=== PATIENT | female | born 1955 | race Caucasian/White ===

== ENCOUNTER 2022-07-28 17:35 | Inpatient (IN) | payer MEDICARE, SELFPAY ==
--- NOTE | ~2022-07-28 | CT_ITS ---
EXAMINATION: CT ABDOMEN AND PELVIS WITHOUT CONTRAST CLINICAL INFORMATION: Bile in stomach and small bowel COMPARISON: None. TECHNIQUE: Oral contrast was administered. No IV contrast. Multidetector volumetric imaging was performed from the lung bases through the pubic symphysis. Sagittal and coronal reformatted images were obtained on the technologist workstation. This CT examination was performed using dose optimization techniques as appropriate, variously including the following: *Automated exposure control *Adjustment of mA and/or kV according to patient size (this includes techniques or standardized protocols for targeted exams where dose is matched to indication/reason for exam; i.e. extremities or head) *Use of iterative reconstruction technique FINDINGS: The lack of intravenous contrast limits evaluation of the solid visceral organs including the liver, spleen, pancreas, and kidneys. LUNG BASES: 5 mm pleural pleural nodule along the right hemidiaphragm, axial image 6/95, coronal image 46/88, likely pleural lymph nodes for which no imaging follow-up is recommended per Fleischner criteria. Bibasilar atelectasis. Mild cardiomegaly. Trace pericardial effusion. LIVER, GALLBLADDER, AND BILIARY TREE: Limited non-contrast evaluation is normal. No gross focal hepatic lesion. Normal liver size and contour. No gross biliary ductal dilation. Gallbladder is distended. There is subtle dependent density consistent with tiny gallstones. No gallbladder wall thickening or pericholecystic fluid. PANCREAS: Limited non-contrast evaluation is normal. No jose-pancreatic fluid. SPLEEN: Limited non-contrast evaluation is normal. ADRENAL GLANDS: Normal; no adrenal mass. KIDNEYS AND URETERS: Atrophic left kidney. No hydronephrosis or calculi. There is volume loss of the anterior cortex of lower pole the right kidney presumably an area of scarring. GASTROINTESTINAL TRACT: Stomach is distended with oral contrast. The proximal to mid small bowel is mildly dilated up to 3.5 cm. The dilated small bowel is followed to the right lower quadrant, with there are fecalized small bowel contents, image 53/95, and a transition to normal caliber. The distal small bowel is collapsed. Oral contrast is seen in the right colon and transverse colon. There is scattered colonic diverticulosis but no evidence of colitis or diverticulitis. The left colon and rectosigmoid colon are collapsed. ABDOMINAL WALL: No hernia seen. LYMPH NODES: No pathologically enlarged lymph nodes in the abdomen or pelvis. VASCULAR: Normal caliber abdominal aorta. BLADDER: Unremarkable. PELVIC VISCERA: Retroverted uterus. No adnexal mass. OSSEOUS STRUCTURES: Age-indeterminate superior endplate compression deformity of T12. CT/CT abdomen pelvis wo IV con IMPRESSION: Small bowel obstruction with transition in the right lower quadrant. There are fecalized small bowel contents immediately proximal to the transition. This could represent a bezoar or be secondary to prolonged small bowel transit time/stasis. Recommend surgery consultation. The findings and recommendations were discussed with Steve Sharma MD by telephone at 07/29/2022 6:07 PM and it was ascertained that the content and urgency of the report was understood at the time of direct communication.
--- NOTE | ~2022-07-28 | XR_ITS ---
EXAMINATION: XR ABDOMEN KUB CLINICAL INDICATION: Small bowel obstruction COMPARISON: Previous CT of the abdomen and pelvis from yesterday TECHNIQUE: AP view of the abdomen. FINDINGS: There is interval decrease in small bowel dilatation from yesterday's CT scan. There is oral contrast in a normal caliber colon. There is diverticulosis of the colon. There is no evidence of free air. No calcifications. There are degenerative changes of the spine. XR/XR KUB IMPRESSION: Interval decrease in small bowel dilatation compared to yesterday's exam.
--- NOTE | ~2022-07-28 | XR_ITS ---
EXAMINATION: XR chest 1V CLINICAL INFORMATION: Reason for Exam gi bleed, vomiting COMPARISON: None TECHNIQUE: One view of the chest FINDINGS: Clear lungs. No pneumothorax or pleural effusion. Borderline enlarged cardiac silhouette. Ectatic thoracic aorta. Prominent pulmonary arteries which can be seen in the setting of pulmonary hypertension. XR/XR chest 1V Impression: 1. Borderline enlarged cardiac silhouette. Ectatic thoracic aorta. 2. Prominent pulmonary arteries which can be seen in the setting of pulmonary hypertension.
--- NOTE | ~2022-07-28 | XR_ITS ---
EXAMINATION: XR foot LT min 3V CLINICAL INFORMATION: Reason for Exam trauma COMPARISON: None. TECHNIQUE: AP, lateral, and oblique views of the foot FINDINGS: No acute fracture or dislocation appreciated however flexion of digits on all views and overlying bandaging material limits evaluation. Joint spaces are maintained without significant degenerative change. Significant soft tissue swelling along the dorsum of the foot. No definite tibiotalar effusion appreciated. Osteopenia. XR/XR foot LT min 3V IMPRESSION: 1. No acute fracture or dislocation appreciated however flexion of digits on all views and overlying bandaging material limits evaluation. 2. Significant soft tissue swelling along the dorsum of the foot. 3. Osteopenia.
--- NOTE | 2022-07-28 17:37 | ED_ITS ---
HPI - GI Bleed General Chief complaint: General Medical Stated complaint: VOMITING BLOOD Time Seen by Provider: 07/28/22 17:36 Source: patient and EMS Mode of arrival: EMS Limitations: no limitations History of Present Illness HPI Narrative: 66-year-old female presents via EMS for 2 days of nausea and vomiting coffee- ground emesis. Patient is being treated at a wound clinic for left lower extremity pemphigoid. Patient does not taking NSAIDs, does not drink alcohol, does not smoke and has no history of liver disease. Patient feels weak, dizzy, and has abdominal pain. She does not report chest pain or pressure, palpitations, changes in vision, abdominal distention, melena, hematochezia, fevers or chills. MD complaint: coffee ground emesis Onset (ago): day(s) (1) Pain Consistency: intermittent Severity: moderate Relieving factors: none Associated symptoms: abdominal pain, nausea, vomiting, malaise and weakness Treatments Prior to Arrival: none Related Data Home Medications Medication Instructions Recorded Confirmed amiodarone 200 mg tablet 0.5 tab PO DAILY 07/28/22 carvedilol 12.5 mg tablet 1 tab PO DAILY 07/28/22 carvedilol 12.5 mg tablet 2 tab PO BEDTIME 07/28/22 doxycycline monohydrate 100 mg 1 cap PO BID 07/28/22 capsule levothyroxine 75 mcg tablet 1 tab PO DAILY 07/28/22 simvastatin 20 mg tablet 1 tab PO BEDTIME 07/28/22 valsartan 40 mg tablet 1 tab PO DAILY 07/28/22 Allergies Allergy/AdvReac Type Severity Reaction Status Date / Time No Known Allergies Allergy Verified 07/28/22 17:39 Review of Systems Review of Systems: Constitutional: No Weight loss, No Fever, No Chills, No Night Sweats, No Fatigue, No Malaise ENT/Mouth: No Hearing loss, No Ear Pain, No Nasal Congestion, No Sinus Pain, No Hoarseness, No sore throat, No Rhinorrhea, No Swallowing Difficulty Eyes: No Eye Pain, No Swelling, No Redness, No Foreign Body, No Discharge, No Vision Changes Cardiovascular: No Chest Pain, No SOB, No Dyspnea on Exertion, No Orthopnea, No Edema, No Palpitations Respiratory: No Cough, No Sputum, No Wheezing, No Smoke Exposure, No Dyspnea Gastrointestinal: Positive Nausea, Positive Vomiting, positive Diarrhea, positive abdominal Pain, positive coffee-ground emesis, No Hematochezia, No Melena Genitourinary: no irregular bleeding, No Dysuria, No Urinary Frequency, No Hematuria, No Urinary Incontinence, No Urgency, No Flank Pain, No Urinary Flow Changes, No Hesitancy Musculoskeletal: No joint pain, No Myalgias, No Joint Swelling Skin: No Skin Lesions, No rash Neuro: No Weakness, No Numbness, No Paresthesias, No Loss of Consciousness, No Dizziness, No Headache Psych: No Anxiety/Panic, No Depression, No SI/HI/AH/VH, No Social Issues Heme/Lymph: No Bruising, No Bleeding,No Lymphadenopathy Endocrine: No Polyuria, No Polydipsia, No Temperature Intolerance Yes all other systems are reviewed and are negative [facility] Past Medical History Attestation statement: The following information was validated with the patient. Source: old records reviewed Medical History (Updated 07/28/22 @ 21:28 by Angelina Torres MD) Afib Essential hypertension Hyperlipemia, mixed Hypothyroid Social History Social History Patient Tobacco Use Status: Never used Tobacco Advance Directives: No Physical Exam Vital Signs: Vital Signs: Last Vital Signs Temp 98.0 F 07/28/22 18:02 Pulse 100 07/28/22 18:02 Resp 105 H 07/28/22 18:02 BP 107/60 07/28/22 18:02 Pulse Ox 98 07/28/22 18:02 O2 Del Method 07/28/22 18:02 BMI result Body Mass Index 28.6 Appearance: Alert. Oriented X3. Moderate distress. Eyes: Pupils equal, round and reactive to light. Sclera nonicteric. ENT: Pharynx normal. Moist mucous membranes. Neck: Normal inspection. Neck supple. CVS: Normal heart rate and rhythm. Pulses normal. Respiratory: No respiratory distress. Breath sounds normal. Abdomen: Soft and nontender. No distention or rigidity. Skin: Skin warm and dry. Normal skin color. Normal skin turgor. Extremities: Left lower extremity bandaged. Moves all extremities against resistance. Gait not assessed for safety. Neuro: No motor deficit. No sensory deficit. Cranial nerves 2-12 intact. Course Course Course Narrative: 66-year-old female presents via EMS for evaluation of 2 days of nausea and coffee-ground emesis with abdominal pain. Patient does not have any significant comorbidities, has a history of hypertension, hypothyroidism, AFib, and bullous pemphigoid currently treated in the wound clinic and receives IVIG. Patient does not drink, smoke, or use illicit drugs. Has no known history of liver disease, peptic ulcer disease, and does not take NSAIDs or aspirin. Patient is alert oriented x4, hemodynamically stable vital signs, afebrile, and nontoxic. Will order labs, order Protonix, and IV fluids. Patient's blood pressure was soft prior to transport from EMS, reported to be 80/40. Patient does report a chronically low blood pressure. Lab values indicate SANDEEP, fall GI bleed can elevated BUN, creatinine is 2.15, BUN 35, no prior values for comparison. H&H is stable at 10.0/33.1, troponin 14.2, EKG left bundle branch block no indication ST elevation or depression. COVID influenza negative. Blood type A positive with negative antibody screen. At this time, CT angio for GI bleed cannot be completed. While patient is hemody namically stable, plan is for correction of SANDEEP and then proceeding with GI study tomorrow. I did discuss this with the hospitalist, who agrees with the plan, and this patient will be admitted for SANDEEP and GI bleed. Consultations Consultation #1: Brian Time: 21:00 MDM - GI Bleed Differential Diagnosis Differential diagnosis: Likely gastritis and Upper gastrointestinal hemorrhage Medical Records Attestation: I reviewed the patient's medical records. Lab Data Attestation: I reviewed the patient's lab results. Result diagrams: 07/28/22 18:25 07/28/22 18:25 Labs: Lab Results 07/28/22 07/28/22 07/28/22 Range/Units 18:25 18:25 18:25 WBC 6.9 (4.8-10.8) X10*3/uL RBC 3.86 L (4.20-5.50) X10*6/uL Hgb 10.0 L (12.0-16.0) g/dl Hct 33.1 L (37.0-47.0) % MCV 85.8 (80.0-98.0) fL MCH 25.9 L (27.0-33.0) pg MCHC 30.2 L (31.0-35.0) g/dl RDW 17.0 H (11.0-16.0) % Plt Count 288 (160-400) X10*3/uL MPV 10.4 (9.4-12.3) fL Immature Gran % (Auto) 0.3 (0.0-0.4) % Neut % (Auto) 72.5 (45-73) % Lymph % (Auto) 15.7 L (20-40) % [place] % (Auto) 5.8 (2-11) % Eos % (Auto) 5.1 H (0-4) % Baso % (Auto) 0.6 (0-2) % Lymph # (Auto) 1.1 L (1.2-4.9) X10*3/uL [place] # (Auto) 0.4 (0.1-1.2) X10*3/uL Eos # (Auto) 0.4 (0.0-0.4) X10*3/uL Baso # (Auto) 0.0 (0.0-0.2) X10*3/uL Abs Immat Gran (auto) 0.02 (0.00-0.03) X10*3/uL Absolute Neuts (auto) 5.0 (2.0-8.3) x10*3/uL Absolute Nucleated RBC 0.000 (0.0-0.012) X10*3/uL Nucleated RBC % (auto) 0.0 (0.0-0.2) /100WBC PT (10.0-13.1) SEC INR (0.9-1.1) APTT 32.0 (26.0-36.4) SEC Sodium 143 (135-145) mmol/L Potassium 4.4 (3.3-5.1) mmol/L Chloride 102 (96-108) mmol/L Carbon Dioxide 25 (22-29) mmol/L Anion Gap 20 (12-20) BUN 35 H (9-16) mg/dL Creatinine 2.15 H (0.5-1.4) mg/dL Estim Creat Clear Calc 30.0 Estimated GFR 23 Random Glucose 114 (60-115) mg/dL Calcium 9.7 (8.4-10.2) mg/dL Magnesium 2.0 (1.6-2.6) mg/dL Iron (30-160) mcg/dL TIBC (228-428) mcg/dL % Saturation (15-50) % Unsat Iron Binding ug/dL Total Bilirubin 0.8 (0.0-1.0) mg/dL Direct Bilirubin 0.3 (0.0-0.5) mg/dL AST 16 (5-31) U/L ALT 6 (0-31) U/L Alkaline Phosphatase 74 (39-117) U/L Troponin I High Sens (<3.5-17.0) ng/L Total Protein 7.1 (6.5-8.0) g/dL Albumin 3.9 (3.5-5.0) g/dL Lipase 25 (8-78) U/L Influenza Type A (PCR) (Negative) Influenza Type B (PCR) (Negative) RSV RNA Qual (PCR) (Negative) SARS-CoV-2 RNA (RT-PCR) (Negative) Blood Type Antibody Screen 07/28/22 07/28/22 07/28/22 Range/Units 18:25 18:25 18:25 WBC (4.8-10.8) X10*3/uL RBC (4.20-5.50) X10*6/uL Hgb (12.0-16.0) g/dl Hct (37.0-47.0) % MCV (80.0-98.0) fL MCH (27.0-33.0) pg MCHC (31.0-35.0) g/dl RDW (11.0-16.0) % Plt Count (160-400) X10*3/uL MPV (9.4-12.3) fL Immature Gran % (Auto) (0.0-0.4) % Neut % (Auto) (45-73) % Lymph % (Auto) (20-40) % [place] % (Auto) (2-11) % Eos % (Auto) (0-4) % Baso % (Auto) (0-2) % Lymph # (Auto) (1.2-4.9) X10*3/uL [place] # (Auto) (0.1-1.2) X10*3/uL Eos # (Auto) (0.0-0.4) X10*3/uL Baso # (Auto) (0.0-0.2) X10*3/uL Abs Immat Gran (auto) (0.00-0.03) X10*3/uL Absolute Neuts (auto) (2.0-8.3) x10*3/uL Absolute Nucleated RBC (0.0-0.012) X10*3/uL Nucleated RBC % (auto) (0.0-0.2) /100WBC PT 12.5 (10.0-13.1) SEC INR 1.1 (0.9-1.1) APTT (26.0-36.4) SEC Sodium (135-145) mmol/L Potassium (3.3-5.1) mmol/L Chloride (96-108) mmol/L Carbon Dioxide (22-29) mmol/L Anion Gap (12-20) BUN (9-16) mg/dL Creatinine (0.5-1.4) mg/dL Estim Creat Clear Calc Estimated GFR Random Glucose (60-115) mg/dL Calcium (8.4-10.2) mg/dL Magnesium (1.6-2.6) mg/dL Iron (30-160) mcg/dL TIBC (228-428) mcg/dL % Saturation (15-50) % Unsat Iron Binding ug/dL Total Bilirubin (0.0-1.0) mg/dL Direct Bilirubin (0.0-0.5) mg/dL AST (5-31) U/L ALT (0-31) U/L Alkaline Phosphatase (39-117) U/L Troponin I High Sens 14.2 (<3.5-17.0) ng/L Total Protein (6.5-8.0) g/dL Albumin (3.5-5.0) g/dL Lipase (8-78) U/L Influenza Type A (PCR) NEGATIVE (Negative) Influenza Type B (PCR) NEGATIVE (Negative) RSV RNA Qual (PCR) NEGATIVE (Negative) SARS-CoV-2 RNA (RT-PCR) NEGATIVE (Negative) Blood Type Antibody Screen 07/28/22 07/28/22 Range/Units 18:25 18:52 WBC (4.8-10.8) X10*3/uL RBC (4.20-5.50) X10*6/uL Hgb (12.0-16.0) g/dl Hct (37.0-47.0) % MCV (80.0-98.0) fL MCH (27.0-33.0) pg MCHC (31.0-35.0) g/dl RDW (11.0-16.0) % Plt Count (160-400) X10*3/uL MPV (9.4-12.3) fL Immature Gran % (Auto) (0.0-0.4) % Neut % (Auto) (45-73) % Lymph % (Auto) (20-40) % [place] % (Auto) (2-11) % Eos % (Auto) (0-4) % Baso % (Auto) (0-2) % Lymph # (Auto) (1.2-4.9) X10*3/uL [place] # (Auto) (0.1-1.2) X10*3/uL Eos # (Auto) (0.0-0.4) X10*3/uL Baso # (Auto) (0.0-0.2) X10*3/uL Abs Immat Gran (auto) (0.00-0.03) X10*3/uL Absolute Neuts (auto) (2.0-8.3) x10*3/uL Absolute Nucleated RBC (0.0-0.012) X10*3/uL Nucleated RBC % (auto) (0.0-0.2) /100WBC PT (10.0-13.1) SEC INR (0.9-1.1) APTT (26.0-36.4) SEC Sodium (135-145) mmol/L Potassium (3.3-5.1) mmol/L Chloride (96-108) mmol/L Carbon Dioxide (22-29) mmol/L Anion Gap (12-20) BUN (9-16) mg/dL Creatinine (0.5-1.4) mg/dL Estim Creat Clear Calc Estimated GFR Random Glucose (60-115) mg/dL Calcium (8.4-10.2) mg/dL Magnesium (1.6-2.6) mg/dL Iron 47 (30-160) mcg/dL TIBC 286 (228-428) mcg/dL % Saturation 16 (15-50) % Unsat Iron Binding 239 ug/dL Total Bilirubin (0.0-1.0) mg/dL Direct Bilirubin (0.0-0.5) mg/dL AST (5-31) U/L ALT (0-31) U/L Alkaline Phosphatase (39-117) U/L Troponin I High Sens (<3.5-17.0) ng/L Total Protein (6.5-8.0) g/dL Albumin (3.5-5.0) g/dL Lipase (8-78) U/L Influenza Type A (PCR) (Negative) Influenza Type B (PCR) (Negative) RSV RNA Qual (PCR) (Negative) SARS-CoV-2 RNA (RT-PCR) (Negative) Blood Type A Positive Antibody Screen NEGATIVE Imaging Data Foot x-ray: Attestation: I personally reviewed and interpreted this imaging study as follows: Radiologist's impression: TECHNIQUE: AP, lateral, and oblique views of the foot FINDINGS: No acute fracture or dislocation appreciated however flexion of digits on all views and overlying bandaging material limits evaluation.? Joint spaces are maintained without significant degenerative change. Significant soft tissue swelling along the dorsum of the foot. No definite tibiotalar effusion appreciated. Osteopenia. XR/XR foot LT min 3V IMPRESSION: 1.? No acute fracture or dislocation appreciated however flexion of digits on all views and overlying bandaging material limits evaluation. 2.? Significant soft tissue swelling along the dorsum of the foot. 3.? Osteopenia. Chest x-ray: Attestation: I personally reviewed and interpreted this imaging study as follows: Radiologist's impression: EXAMINATION: XR chest 1V CLINICAL INFORMATION: Reason for Exam gi bleed, vomiting COMPARISON: None TECHNIQUE: One view of the chest FINDINGS: Clear lungs. No pneumothorax or pleural effusion. Borderline enlarged cardiac silhouette. Ectatic thoracic aorta. Prominent pulmonary arteries which can be seen in the setting of pulmonary hypertension. XR/XR chest 1V Impression: 1.? Borderline enlarged cardiac silhouette. Ectatic thoracic aorta. 2.? Prominent pulmonary arteries which can be seen in the setting of pulmonary hypertension. ? ECG Data Attestation: I personally reviewed and interpreted this ECG as follows: ECG interpretation date: 07/28/22 ECG interpretation time: 19:03 Prior ECG tracings: not available for review Interpretation: Vent. rate 89 BPM [place] interval 178 ms QRS duration 126 ms QT/QTc 402/489 ms P-R-T axes 44 -9 118 Normal sinus rhythm Left bundle branch block Abnormal ECG No previous ECGs available Discharge Plan Discharge Clinical Impression: SANDEEP (acute kidney injury), GI bleed Patient Disposition: Admitted As Inpatient
--- NOTE | 2022-07-28 17:40 | ECG_ITS ---
Test Reason : VOMITING BLOOD Blood Pressure : / mmHG Vent. Rate : 089 BPM Atrial Rate : 089 BPM P-R Int : 178 ms QRS Dur : 126 ms QT Int : 402 ms P-R-T Axes : 044 -09 118 degrees QTc Int : 489 ms Normal sinus rhythm Left bundle branch block Abnormal ECG No previous ECGs available Referred By: Nicol Joy Electronically Signed By:NADIA ADAMES MD
[2022-07-28 18:02] VITALS: BP 107/60; BP 80/40; PULSE 100; PULSE 110; RESP 105; TEMP 36.7; O2SAT 98; BMI 28.6
[2022-07-28] MEDS: Pantoprazole Sodium 40 MG/10 ML VIAL IVPUSH (18:30)
[2022-07-28 18:31] LABS: MANUAL DIFF FLAG NO
[2022-07-28] MEDS: 0.9 % Sodium Chloride 1,000 ML 999 ML IVCONT ×2 (18:32→20:01)
[2022-07-28 18:35] LABS: Basophils Percent Auto 0.6 % (0-2); Eosinophils Absolute Auto 0.4 X10*3/uL (0.0-0.4); Eosinophils Percent Auto 5.1 % (0-4); Hematocrit 33.1 % (37.0-47.0); Imm Gran Abs Auto 0.02 X10*3/uL (0.00-0.03); Imm Gran Pct Auto 0.3 % (0.0-0.4); Lymphocytes Absolute Auto 1.1 X10*3/uL (1.2-4.9); Lymphocytes Percent Auto 15.7 % (20-40); Mean Corpuscular HGB Conc 30.2 g/dl (31.0-35.0); Mean Corpuscular Hemoglobin 25.9 pg (27.0-33.0); Mean Corpuscular Volume 85.8 fL (80.0-98.0); Mean Platelet Volume 10.4 fL (9.4-12.3); Monocytes Absolute Auto 0.4 X10*3/uL (0.1-1.2); Monocytes Percent Auto 5.8 % (2-11); Neutrophils Percent Auto 72.5 % (45-73); Platelet Count 288 X10*3/uL (160-400); Red Blood Count 3.86 X10*6/uL (4.20-5.50); White Blood Count 6.9 X10*3/uL (4.8-10.8)
[2022-07-28 18:38] LABS: INTERNATIONAL NORM RATIO 1.1 (0.9-1.1); Prothrombin Time 12.5 SEC (10.0-13.1)
[2022-07-28 18:48] LABS: Alanine Aminotransferase 6 U/L (0-31); Albumin Level 3.9 g/dL (3.5-5.0); Alkaline Phosphatase 74 U/L (39-117); Anion Gap 20 (12-20); Aspartate Amino Transferase 16 U/L (5-31); Bilirubin Direct 0.3 mg/dL (0.0-0.5); Bilirubin Total 0.8 mg/dL (0.0-1.0); Blood Urea Nitrogen 35 mg/dL (9-16); Calcium 9.7 mg/dL (8.4-10.2); Carbon Dioxide 25 mmol/L (22-29); Chloride 102 mmol/L (96-108); Estimated Glomerular Filt Rate 23; Glucose Random 114 mg/dL (60-115); Lipase 25 U/L (8-78); Potassium 4.4 mmol/L (3.3-5.1); Sodium 143 mmol/L (135-145); Total Protein 7.1 g/dL (6.5-8.0)
[2022-07-28 18:52] LABS: Troponin-I High Sensitivity 14.2 ng/L (<3.5-17.0)
[2022-07-28 19:11] LABS: Influenza A PCR NEGATIVE (Negative); Influenza B PCR NEGATIVE (Negative); Resp Syncy Virus RNA Qual PCR NEGATIVE (Negative); SARS COV2 PCR INHOUSE NEGATIVE (Negative)
--- NOTE | 2022-07-28 21:22 | PM.IMHP ---
History of Present Illness Date of Service: 07/28/22 Chief Complaint: Coffee ground emesis This is a 66-year-old female with pertinent history of atrial fibrillation not on anticoagulation, essential hypertension, hypothyroidism, mixed hyperlipidemia who presents for evaluation of coffee-ground emesis. Patient states she had 2 episodes of coffee-ground emesis over 2 days, last being on the day of presentation. Also has associated epigastric pain, constant and without any relieving factors. Patient has had reduced p.o. intake due to epigastric pain and coffee-ground emesis. Denies similar his history in the past. Never has had upper GI scope. Patient admits to using ibuprofen often in the last 6 months due to her left foot discomfort. Denies melena or hematochezia. No fever, chills, chest discomfort, palpitations, shortness of breath, changes in urinary or bowel habits In the emergency department, patient was found to be tachycardic and elevated creatinine noted. Review of Systems Constitutional: Constitutional: Reports no additional constitutional complaints Cardiovascular: Cardiovascular: Reports no additional cardiovascular complaints Respiratory: Respiratory: Reports no additional respiratory complaints Gastrointestinal: Gastrointestinal: Reports hematemesis Genitourinary: Genitourinary: Reports no additional female genitourinary complaints Musculoskeletal: Musculoskeletal: Reports arthralgias Comments: left foot pain PMFSH Medical History (Updated 07/28/22 @ 21:28 by Angelina Torres MD) Afib Essential hypertension Hyperlipemia, mixed Hypothyroid Social History Patient Tobacco Use Status: Never used Tobacco Advance Directives: No Meds Allergies Allergy/AdvReac Type Severity Reaction Status Date / Time No Known Allergies Allergy Verified 07/28/22 17:39 Active Medications: Current Medications Acetaminophen (Acetaminophen 325 Mg Tablet) 650 mg PO Q6H PRN PRN Reason: Pain, Mild (Pain Scale 1-3) Melatonin (Melatonin 3 Mg Tablet) 6 mg PO BEDTIME PRN PRN Reason: Insomnia Ondansetron HCl (Ondansetron Hcl 4 Mg/2 Ml Vial) 4 mg IVPUSH Q8H PRN PRN Reason: Nausea and Vomiting Sodium Chloride (0.9 % Sodium Chloride Flush 3 Ml Syringe) 3 ml IVFLUSH [facility] Medications Medication Instructions Recorded Confirmed Last Taken Type amiodarone 200 mg tablet 0.5 tab PO DAILY 07/28/22 Unknown History carvedilol 12.5 mg tablet 1 tab PO DAILY 07/28/22 Unknown History carvedilol 12.5 mg tablet 2 tab PO BEDTIME 07/28/22 Unknown History doxycycline monohydrate 100 mg 1 cap PO BID 07/28/22 Unknown History capsule levothyroxine 75 mcg tablet 1 tab PO DAILY 07/28/22 Unknown History simvastatin 20 mg tablet 1 tab PO BEDTIME 07/28/22 Unknown History valsartan 40 mg tablet 1 tab PO DAILY 07/28/22 Unknown History Physical Exam Vital Signs and Narrative: Vital Signs: Last Vital Signs Temp 98.0 F 07/28/22 18:02 Pulse 100 07/28/22 18:02 Resp 105 H 07/28/22 18:02 BP 107/60 07/28/22 18:02 Pulse Ox 98 07/28/22 18:02 O2 Del Method 07/28/22 18:02 BMI result Body Mass Index 28.6 Elderly female lying in bed in no distress Neck supple, no JVD Tachycardic with irregular rhythm, S1-S2 heard Regular breath sounds bilaterally, no wheezing or crackles appreciated Abdomen is epigastric tenderness, no rigidity, no rebound tenderness, no guarding Patient is awake, alert and oriented to self, place, time and person ; no focal motor deficit Psych: Normal mood No pedal edema Results Labs CBC and Chem 7: 07/28/22 18:25 07/28/22 18:25 Labs: Laboratory Results - last 24 hr 07/28/22 07/28/22 07/28/22 18:25 18:25 18:25 MCV 85.8 MCH 25.9 L MCHC 30.2 L RDW 17.0 H Plt Count 288 MPV 10.4 Immature Gran % (Auto) 0.3 Neut % (Auto) 72.5 Lymph % (Auto) 15.7 L [place] % (Auto) 5.8 Eos % (Auto) 5.1 H Baso % (Auto) 0.6 Lymph # (Auto) 1.1 L [place] # (Auto) 0.4 Eos # (Auto) 0.4 Baso # (Auto) 0.0 Abs Immat Gran (auto) 0.02 Absolute Neuts (auto) 5.0 Absolute Nucleated RBC 0.000 Nucleated RBC % (auto) 0.0 PT INR APTT 32.0 Anion Gap 20 Estim Creat Clear Calc 30.0 Estimated GFR 23 Random Glucose 114 Calcium 9.7 Magnesium 2.0 Total Bilirubin 0.8 Direct Bilirubin 0.3 AST 16 ALT 6 Alkaline Phosphatase 74 Troponin I High Sens Total Protein 7.1 Albumin 3.9 Lipase 25 Influenza Type A (PCR) Influenza Type B (PCR) RSV RNA Qual (PCR) SARS-CoV-2 RNA (RT-PCR) Blood Type Antibody Screen 07/28/22 07/28/22 07/28/22 18:25 18:25 18:25 MCV MCH MCHC RDW Plt Count MPV Immature Gran % (Auto) Neut % (Auto) Lymph % (Auto) [place] % (Auto) Eos % (Auto) Baso % (Auto) Lymph # (Auto) [place] # (Auto) Eos # (Auto) Baso # (Auto) Abs Immat Gran (auto) Absolute Neuts (auto) Absolute Nucleated RBC Nucleated RBC % (auto) PT 12.5 INR 1.1 APTT Anion Gap Estim Creat Clear Calc Estimated GFR Random Glucose Calcium Magnesium Total Bilirubin Direct Bilirubin AST ALT Alkaline Phosphatase Troponin I High Sens 14.2 Total Protein Albumin Lipase Influenza Type A (PCR) NEGATIVE Influenza Type B (PCR) NEGATIVE RSV RNA Qual (PCR) NEGATIVE SARS-CoV-2 RNA (RT-PCR) NEGATIVE Blood Type Antibody Screen 07/28/22 18:52 MCV MCH MCHC RDW Plt Count MPV Immature Gran % (Auto) Neut % (Auto) Lymph % (Auto) [place] % (Auto) Eos % (Auto) Baso % (Auto) Lymph # (Auto) [place] # (Auto) Eos # (Auto) Baso # (Auto) Abs Immat Gran (auto) Absolute Neuts (auto) Absolute Nucleated RBC Nucleated RBC % (auto) PT INR APTT Anion Gap Estim Creat Clear Calc Estimated GFR Random Glucose Calcium Magnesium Total Bilirubin Direct Bilirubin AST ALT Alkaline Phosphatase Troponin I High Sens Total Protein Albumin Lipase Influenza Type A (PCR) Influenza Type B (PCR) RSV RNA Qual (PCR) SARS-CoV-2 RNA (RT-PCR) Blood Type A Positive Antibody Screen NEGATIVE Imaging Radiologist's Impressions: Impressions Chest X-Ray 07/28/22 19:20 Impression: 1. Borderline enlarged cardiac silhouette. Ectatic thoracic aorta. 2. Prominent pulmonary arteries which can be seen in the setting of pulmonary hypertension. Foot X-Ray 07/28/22 19:20 IMPRESSION: 1. No acute fracture or dislocation appreciated however flexion of digits on all views and overlying bandaging material limits evaluation. 2. Significant soft tissue swelling along the dorsum of the foot. 3. Osteopenia. Assessment and Plan (1) GI bleed: Status: Acute (2) SANDEEP (acute kidney injury): Status: Acute (3) Hyperlipemia, mixed: Status: Acute (4) Essential hypertension: Status: Acute (5) Hypothyroid: Status: Acute (6) Afib: Status: Acute Plan This is a 66-year-old female with pertinent history of atrial fibrillation not on anticoagulation, essential hypertension, hypothyroidism, mixed hyperlipidemia who presents for evaluation of coffee-ground emesis. #. Acute upper GI bleed #. Epigastric pain -concerning for ulcer in the setting of NSAID use. Initiating IV Protonix 40 mg b.i.d.. Resuscitating with IV crystalloids. Close monitoring of hemodynamics. Consulted GI in a.m. Will keep patient NPO #. Normocytic anemia -unknown baseline. Obtaining iron studies #. Elevated creatinine -likely acute kidney injury, prerenal due to above. Unknown baseline, patient states she does not have a history of kidney disease. Monitor urine output and creatinine with fluid resuscitation #. Hypothyroidism -on Synthroid #. Atrial fibrillation -not on anticoagulation. Holding carvedilol in the setting of acute GI bleed #. Essential hypertension -hold home antihypertensives DVT prophylaxis: Mechanical. Avoid anticoagulation in the setting of acute GI bleed Diet: NPO Full code Patient will require two night minimum hospital stay for evaluation of acute GI bleed with close monitoring of hemodynamics. GI consult pending with possible endoscopic evaluation Quality Stroke Does the patient have a stroke diagnosis?: No VTE Prior VTE?: No VTE Risk Level:: Medical - moderate - high VTE Device Contraindication: N/A - Device Ordered VTE Drug Contraindication: Treatment Not Indicated
[2022-07-28 22:06] LABS: Iron 47 mcg/dL (30-160); Percent Iron Saturation 16 % (15-50); Total Iron Binding Capacity 286 mcg/dL (228-428); Unsaturated Iron Binding 239 ug/dL
[2022-07-29] VITALS (11 sets, daily range): BP systolic 94–147; BP diastolic 42–67; PULSE 68–92; RESP 16–24; TEMP 36.2–37.1; O2SAT 94–98
[2022-07-29] MEDS: 0.9 % Sodium Chloride Flush 3 ML SYRINGE IVFLUSH ×3 (05:18→18:16)
[2022-07-29] MEDS: Pantoprazole Sodium 40 MG/10 ML VIAL IVPUSH ×2 (05:18→18:15)
[2022-07-29 06:06] LABS: MANUAL DIFF FLAG NO
[2022-07-29 06:08] LABS: Basophils Percent Auto 0.5 % (0-2); Eosinophils Absolute Auto 0.4 X10*3/uL (0.0-0.4); Eosinophils Percent Auto 7.1 % (0-4); Hematocrit 27.7 % (37.0-47.0); Hemoglobin 8.3 g/dl (12.0-16.0); Imm Gran Abs Auto 0.02 X10*3/uL (0.00-0.03); Imm Gran Pct Auto 0.3 % (0.0-0.4); Lymphocytes Absolute Auto 1.6 X10*3/uL (1.2-4.9); Lymphocytes Percent Auto 26.9 % (20-40); Mean Corpuscular Hemoglobin 25.8 pg (27.0-33.0); Mean Platelet Volume 10.4 fL (9.4-12.3); Monocytes Absolute Auto 0.5 X10*3/uL (0.1-1.2); Neutrophils Absolute Auto 3.4 x10*3/uL (2.0-8.3); Neutrophils Percent Auto 57.2 % (45-73); Platelet Count 193 X10*3/uL (160-400); Red Blood Count 3.22 X10*6/uL (4.20-5.50); Red Cell Distribution Width 16.9 % (11.0-16.0); White Blood Count 5.9 X10*3/uL (4.8-10.8)
[2022-07-29 06:25] LABS: Anion Gap 17 (12-20); Blood Urea Nitrogen 32 mg/dL (9-16); Calcium 8.5 mg/dL (8.4-10.2); Carbon Dioxide 22 mmol/L (22-29); Chloride 109 mmol/L (96-108); Creatinine Clr Calc Pharmacy 37.9; Estimated Glomerular Filt Rate 30; Glucose Random 96 mg/dL (60-115); Potassium 3.7 mmol/L (3.3-5.1); Sodium 144 mmol/L (135-145)
--- NOTE | 2022-07-29 07:30 | PC.NURSE ---
Patient was destating in the 70s and back up to the low 90s. Patient was put on 2L of oxygen per nurse request.
--- NOTE | 2022-07-29 08:13 | PHA.MEDREC ---
Pharmacy Consult ? Medication Reconciliation Pharmacy has completed the medication reconciliation. Patient confirmed medicaitons. Manju Valentino, YumikoD
--- NOTE | 2022-07-29 11:20 | P.PNIM_ITS ---
Subjective Subjective Date of Service: 07/29/22 Interval History: Being followed for coffee-ground emesis as per patient had 2 episodes of vomiting prior to coming ER offers time vomited almost up to 1 L, had no recurrent symptoms since admission, denies abdominal pain no nausea no melena, no heartburn or acid 80, patient complaining of left foot pain almost 2 weeks has history of pemphigus [facility] requiring daily dressing changes that she does at home, at present denies fever chills, no headache no lightheadedness or dizziness, is NPO . 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 Neck supple no JVD. CVS regular rate rhythm, Respiratory lungs clear to auscultation, no respiratory distress, no wheeze, no rhonchi. Gastrointestinal abdomen soft, nontender, bowel sounds audible, no guarding , no rigidity. Extremities no edema right leg, Left leg X sensitive wound extending from left foot to mid leg healing well no drainage no foul odor, significant swelling and dry scaly skin chronic as per patient Neuro nonfocal , speech clear Psych appropriate affect Objective Data Active Medications Acetaminophen (Acetaminophen 325 Mg Tablet) 650 mg PO Q6H PRN PRN Reason: Pain, Mild (Pain Scale 1-3) Amiodarone HCl (Amiodarone Hcl 200 Mg Tablet) 100 mg PO DAILY MARK Levothyroxine Sodium (Levothyroxine Sodium 75 Mcg Tablet) 75 mcg PO DAILY@0600 MARK Melatonin (Melatonin 3 Mg Tablet) 6 mg PO BEDTIME PRN PRN Reason: Insomnia Ondansetron HCl (Ondansetron Hcl 4 Mg/2 Ml Vial) 4 mg IVPUSH Q8H PRN PRN Reason: Nausea and Vomiting Pantoprazole Sodium (Pantoprazole Sodium 40 Mg/10 Ml Vial) 40 mg IVPUSH B [id number] [facility] Last Admin: 07/29/22 05:18 Dose: 40 mg Documented By: KHANH Sodium Chloride (0.9 % Sodium Chloride Flush 3 Ml Syringe) 3 ml IVFLUSH QSHIFT [facility] Last Admin: 07/29/22 05:18 Dose: 3 ml Documented By: KHANH Labs CBC & Chem 7: 07/29/22 05:51 07/29/22 05:51 Labs: Laboratory Results - last 24 hr 07/28/22 07/28/22 07/28/22 18:25 18:25 18:25 MCV 85.8 MCH 25.9 L MCHC 30.2 L RDW 17.0 H Plt Count 288 MPV 10.4 Immature Gran % (Auto) 0.3 Neut % (Auto) 72.5 Lymph % (Auto) 15.7 L Collin % (Auto) 5.8 Eos % (Auto) 5.1 H Baso % (Auto) 0.6 Lymph # (Auto) 1.1 L Collin # (Auto) 0.4 Eos # (Auto) 0.4 Baso # (Auto) 0.0 Abs Immat Gran (auto) 0.02 Absolute Neuts (auto) 5.0 Absolute Nucleated RBC 0.000 Nucleated RBC % (auto) 0.0 PT INR APTT 32.0 Anion Gap 20 Estim Creat Clear Calc 30.0 Estimated GFR 23 Random Glucose 114 Calcium 9.7 Magnesium 2.0 Iron TIBC % Saturation Unsat Iron Binding Total Bilirubin 0.8 Direct Bilirubin 0.3 AST 16 ALT 6 Alkaline Phosphatase 74 Troponin I High Sens Total Protein 7.1 Albumin 3.9 Lipase 25 Influenza Type A (PCR) Influenza Type B (PCR) RSV RNA Qual (PCR) SARS-CoV-2 RNA (RT-PCR) Blood Type Antibody Screen 07/28/22 07/28/22 07/28/22 18:25 18:25 18:25 MCV MCH MCHC RDW Plt Count MPV Immature Gran % (Auto) Neut % (Auto) Lymph % (Auto) Collin % (Auto) Eos % (Auto) Baso % (Auto) Lymph # (Auto) Collin # (Auto) Eos # (Auto) Baso # (Auto) Abs Immat Gran (auto) Absolute Neuts (auto) Absolute Nucleated RBC Nucleated RBC % (auto) PT 12.5 INR 1.1 APTT Anion Gap Estim Creat Clear Calc Estimated GFR Random Glucose Calcium Magnesium Iron TIBC % Saturation Unsat Iron Binding Total Bilirubin Direct Bilirubin AST ALT Alkaline Phosphatase Troponin I High Sens 14.2 Total Protein Albumin Lipase Influenza Type A (PCR) NEGATIVE Influenza Type B (PCR) NEGATIVE RSV RNA Qual (PCR) NEGATIVE SARS-CoV-2 RNA (RT-PCR) NEGATIVE Blood Type Antibody Screen 07/28/22 07/28/22 07/29/22 18:25 18:52 05:51 MCV MCH MCHC RDW Plt Count MPV Immature Gran % (Auto) Neut % (Auto) Lymph % (Auto) Collin % (Auto) Eos % (Auto) Baso % (Auto) Lymph # (Auto) Collin # (Auto) Eos # (Auto) Baso # (Auto) Abs Immat Gran (auto) Absolute Neuts (auto) Absolute Nucleated RBC Nucleated RBC % (auto) PT INR APTT Anion Gap 17 Estim Creat Clear Calc 37.9 Estimated GFR 30 Random Glucose 96 Calcium 8.5 D Magnesium Iron 47 TIBC 286 % Saturation 16 Unsat Iron Binding 239 Total Bilirubin Direct Bilirubin AST ALT Alkaline Phosphatase Troponin I High Sens Total Protein Albumin Lipase Influenza Type A (PCR) Influenza Type B (PCR) RSV RNA Qual (PCR) SARS-CoV-2 RNA (RT-PCR) Blood Type A Positive Antibody Screen NEGATIVE 07/29/22 05:51 MCV 86.0 MCH 25.8 L MCHC 30.0 L RDW 16.9 H Plt Count 193 D MPV 10.4 Immature Gran % (Auto) 0.3 Neut % (Auto) 57.2 Lymph % (Auto) 26.9 Collin % (Auto) 8.0 Eos % (Auto) 7.1 H Baso % (Auto) 0.5 Lymph # (Auto) 1.6 Collin # (Auto) 0.5 Eos # (Auto) 0.4 Baso # (Auto) 0.0 Abs Immat Gran (auto) 0.02 Absolute Neuts (auto) 3.4 Absolute Nucleated RBC 0.000 Nucleated RBC % (auto) 0.0 PT INR APTT Anion Gap Estim Creat Clear Calc Estimated GFR Random Glucose Calcium Magnesium Iron TIBC % Saturation Unsat Iron Binding Total Bilirubin Direct Bilirubin AST ALT Alkaline Phosphatase Troponin I High Sens Total Protein Albumin Lipase Influenza Type A (PCR) Influenza Type B (PCR) RSV RNA Qual (PCR) SARS-CoV-2 RNA (RT-PCR) Blood Type Antibody Screen Assessment and Plan (1) GI bleed: Status: Acute (2) SANDEEP (acute kidney injury): Status: Acute (3) Hyperlipemia, mixed: Status: Acute (4) Afib: Status: Acute (5) Essential hypertension: Status: Acute (6) Hypothyroid: Status: Acute Plan 66-year-old female with pertinent history of atrial fibrillation not on anticoagulation, essential hypertension, hypothyroidism, mixed hyperlipidemia who presents for evaluation of coffee-ground emesis. #.? Acute upper GI bleed/ Epigastric pain Differential diagnosis gastritis/ peptic ulcer disease/avm hx of nsaid use -no recurreent episodes of hematemesis no epigastric pain, continue NPO, IV fluids, continue IV Protonix 40 mg b.i.d.follow cbc Will cancel CT abdomen, await GI input for possible upper endoscopy #.? Acute blood loss anemia Hematocrit dropped from 33-27.7, will repeat CBC in 6 hours if hematocrit trending down will transfuse patient agreed with transfusion if needed, is stable iron studies #.?acute kidney injury, likely pre renal Unknown baseline, creatinine trending down ,cont ivf hold valsartan , avoid hypotension,follow bmp creat 2.1 to 1.7 #.? Hypothyroidism -resume home dose of Synthroid #.? Atrial fibrillation -not on anticoagulation. Will resume amiodarone and Coreg?, continue tele monitor #.? Essential hypertension -will hold valsartan due to acute kidney injury ,stable blood pressure # chronic left leg wound with history of pemphigus cont dressing change wound consult DVT prophylaxis:? Mechanical.? Avoid anticoagulation in the setting of acute GI bleed Full code Patient will require continued inpatient hospital stay for evaluation of acute GI bleed with close monitoring of CBC and upper endoscopy Quality Stroke Does the patient have a stroke diagnosis?: No VTE Prior VTE?: No VTE Risk Level:: Medical - moderate - high VTE Device Contraindication: N/A - Device Ordered VTE Drug Contraindication: Treatment Not Indicated
--- NOTE | 2022-07-29 11:58 | PM.GICN ---
History of Present Illness Data of Consult Service Date: 07/29/22 Requesting physician: Angelina Torres Primary Care Provider: Unknown Physician HPI Reason for consult: Coffee ground emesis This is a 66 year old female with past medical history of bullous pemphigoid, A fib, hypertension, recent positive Cologuard who presents to the hospital for coffee-ground emesis x2 days. History was obtained from the patient, who states that she has been taking ibuprofen for 2-3 weeks for her left foot pain. Two days prior to admission, she noticed 1st episode of coffee-ground emesis, which continued on for another 7-8 episodes. Estimates at least 1.5 L of overall emesis volume. Denies any chest pain, shortness of breath, lightheadedness. She does feel a bit weak however. She also had abdominal pain. Both the abdominal pain and vomiting have not recurred since last evening. Denies any rectal bleeding or melena. No prior history of GI bleeding. Of note, she has history of atrial fibrillation but is not on anticoagulation. Currently, remains NPO. I did inquire her about the positive Cologuard test 3 months ago. She states that she has too much going on, so has not had a chance to set up an appointment for colonoscopy. Review of Systems Review of Systems: Yes all other systems are reviewed and are negative PMFSH Past Medical History Medical History Afib Essential hypertension Hyperlipemia, mixed Hypothyroid Social History Social History Patient Tobacco Use Status: Never used Tobacco Advance Directives: No Meds Allergies Allergy/AdvReac Type Severity Reaction Status Date / Time No Known Allergies Allergy Verified 07/28/22 17:39 Active Medications: Current Medications Acetaminophen (Acetaminophen 325 Mg Tablet) 650 mg PO Q6H PRN PRN Reason: Pain, Mild (Pain Scale 1-3) Amiodarone HCl (Amiodarone Hcl 200 Mg Tablet) 100 mg PO DAILY MARK Lactated Ringer's (Lr) 1,000 mls @ 80 mls/hr IVCONT .[id number] MARK Levothyroxine Sodium (Levothyroxine Sodium 75 Mcg Tablet) 75 mcg PO DAILY@0600 MARK Melatonin (Melatonin 3 Mg Tablet) 6 mg PO BEDTIME PRN PRN Reason: Insomnia Ondansetron HCl (Ondansetron Hcl 4 Mg/2 Ml Vial) 4 mg IVPUSH Q8H PRN PRN Reason: Nausea and Vomiting Pantoprazole Sodium (Pantoprazole Sodium 40 Mg/10 Ml Vial) 40 mg IVPUSH BID@0630,1630 [facility] Last Admin: 07/29/22 05:18 Dose: 40 mg Sodium Chloride (0.9 % Sodium Chloride Flush 3 Ml Syringe) 3 ml IVFLUSH QSHIFT [facility] Last Admin: 07/29/22 05:18 Dose: 3 ml Home Medications Medication Instructions Recorded Confirmed Last Taken Type amiodarone 200 mg tablet 0.5 tab PO DAILY 07/28/22 07/29/22 07/28/22 History carvedilol 12.5 mg tablet 1 tab PO DAILY 07/28/22 07/29/22 07/28/22 History carvedilol 12.5 mg tablet 2 tab PO BEDTIME 07/28/22 07/29/22 07/27/22 History doxycycline monohydrate 100 mg 1 cap PO BID 07/28/22 07/29/22 07/28/22 History capsule levothyroxine 75 mcg tablet 1 tab PO DAILY 07/28/22 07/29/22 07/28/22 History simvastatin 20 mg tablet 1 tab PO BEDTIME 07/28/22 07/29/22 07/27/22 History valsartan 40 mg tablet 1 tab PO DAILY 07/28/22 07/29/22 07/28/22 History ibuprofen 200 mg tablet 400 mg PO Q6H PRN Pain 07/29/22 07/29/22 07/28/22 History Physical Exam Vital Signs: Vital Signs: Last Vital Signs Temp 97.4 F 07/29/22 09:52 Pulse 76 07/29/22 09:52 Resp 23 H 07/29/22 09:52 BP 113/59 L 07/29/22 09:52 Pulse Ox 94 07/29/22 09:52 O2 Del Method 07/29/22 09:52 BMI result Body Mass Index 28.6 Gen appear: No acute distress, well nourished HEENT: no icterus, no cervical lymphadenopathy Chest: No overt resp distress CVS: S1/S2, regular Abd: soft, nontender, nondistended Psych: Stable affect, answering questions appropriately Neuro: A/Ox3 noted to move all extremities spontaneously Ext: L foot in dressing with considerable swelling and blistering Results Labs CBC & Chem 7: 07/29/22 05:51 07/29/22 05:51 Labs: Short CBC 07/28/22 07/29/22 Range/Units 18:25 05:51 WBC 6.9 5.9 (4.8-10.8) X10*3/uL Hgb 10.0 L 8.3 L (12.0-16.0) g/dl Hct 33.1 L 27.7 L (37.0-47.0) % Plt Count 288 193 D (160-400) X10*3/uL BMP 07/28/22 07/29/22 18:25 05:51 Sodium 143 144 Potassium 4.4 3.7 Chloride 102 109 H Carbon Dioxide 25 22 BUN 35 H 32 H Creatinine 2.15 H 1.70 H Calcium 9.7 8.5 D Liver Function 07/28/22 Range/Units 18:25 Total Bilirubin 0.8 (0.0-1.0) mg/dL Direct Bilirubin 0.3 (0.0-0.5) mg/dL AST 16 (5-31) U/L ALT 6 (0-31) U/L Alkaline Phosphatase 74 (39-117) U/L Albumin 3.9 (3.5-5.0) g/dL Assessment and Plan (1) Anemia due to blood loss: Status: Acute (2) GI bleed: Status: Acute (3) salvage determiner (current) use of non-steroidal anti-inflammatories (nsaid): Status: Acute (4) Positive colorectal cancer screening using Cologuard test: Status: Acute Plan Presentation consistent with upper GI bleeding. Differentials include esophagitis/gastritis/duodenitis, PUD, AVM, Dieulafoy's lesion, mass. ecommendations: -please maintain 2 large-bore IV access at all times -active type and screen -monitor H&H and transfuse for hemoglobin <7mg/dl -please keep the patient NPO for EGD this afternoon -continue PPI therapy -avoid NSAIDs -patient was also counseled that she should follow up with Gastroenterology for outpatient colonoscopy in the next 2-3 months to follow-up on the positive Cologuard. Procedures Date of Service Date of Service: 07/29/22
--- NOTE | 2022-07-29 12:18 | P.CONAN_ITS ---
HPI - Anesthesia Eval Consult details Narrative: GI bleeding PMFSH Active Problems Active Problems: All Active Problems (Updated 07/29/22 @ 12:04 by Melinda Gambino MD) Positive colorectal cancer screening using Cologuard test (Acute) watermaster (current) use of non-steroidal anti-inflammatories (nsaid) (Acute) Anemia due to blood loss (Acute) Hypothyroid (Acute) Essential hypertension (Acute) Afib (Acute) Hyperlipemia, mixed (Acute) SANDEEP (acute kidney injury) (Acute) GI bleed (Acute) Past Medical History Medical History Afib Essential hypertension Hyperlipemia, mixed Hypothyroid Family History Family history of problems with anesthesia: No Surgical History Surgical History (Updated 07/29/22 @ 12:21 by Anna Cantrell RN) History of surgery on lower extremity History of Problems with Anesthesia: No Social History Social History Patient Tobacco Use Status: Never used Tobacco Advance Directives: No Meds Allergies Allergy/AdvReac Type Severity Reaction Status Date / Time No Known Allergies Allergy Verified 07/28/22 17:39 Active Medications: Current Medications Acetaminophen (Acetaminophen 325 Mg Tablet) 650 mg PO Q6H PRN PRN Reason: Pain, Mild (Pain Scale 1-3) Amiodarone HCl (Amiodarone Hcl 200 Mg Tablet) 100 mg PO DAILY [facility] Lactated Ringer's (Lr) 1,000 mls @ 80 mls/hr IVCONT .[id number] [facility] Levothyroxine Sodium (Levothyroxine Sodium 75 Mcg Tablet) 75 mcg PO DAILY@0600 [facility] Melatonin (Melatonin 3 Mg Tablet) 6 mg PO BEDTIME PRN PRN Reason: Insomnia Ondansetron HCl (Ondansetron Hcl 4 Mg/2 Ml Vial) 4 mg IVPUSH Q8H PRN PRN Reason: Nausea and Vomiting Pantoprazole Sodium (Pantoprazole Sodium 40 Mg/10 Ml Vial) 40 mg IVPUSH BID@0630,1630 [facility] Last Admin: 07/29/22 05:18 Dose: 40 mg Sodium Chloride (0.9 % Sodium Chloride Flush 3 Ml Syringe) 3 ml IVFLUSH QSHIFT [facility] Last Admin: 07/29/22 05:18 Dose: 3 ml Home Medications Medication Instructions Recorded Confirmed Last Taken Type amiodarone 200 mg tablet 0.5 tab PO DAILY 07/28/22 07/29/22 07/28/22 History carvedilol 12.5 mg tablet 1 tab PO DAILY 07/28/22 07/29/22 07/28/22 History carvedilol 12.5 mg tablet 2 tab PO BEDTIME 07/28/22 07/29/22 07/27/22 History doxycycline monohydrate 100 mg 1 cap PO BID 07/28/22 07/29/22 07/28/22 History capsule levothyroxine 75 mcg tablet 1 tab PO DAILY 07/28/22 07/29/22 07/28/22 History simvastatin 20 mg tablet 1 tab PO BEDTIME 07/28/22 07/29/22 07/27/22 History valsartan 40 mg tablet 1 tab PO DAILY 07/28/22 07/29/22 07/28/22 History ibuprofen 200 mg tablet 400 mg PO Q6H PRN Pain 07/29/22 07/29/22 07/28/22 History Exam Exam Date and Time: July 29, 2022 1218 Height,Weight and Vital Signs: Height 5 ft 9 in Weight 87.997 kg Last Vital Signs Temp 97.4 F 07/29/22 09:52 Pulse 76 07/29/22 09:52 Resp 23 H 07/29/22 09:52 BP 113/59 L 07/29/22 09:52 Pulse Ox 94 07/29/22 09:52 O2 Del Method 07/29/22 09:52 Pertinent Lab Results Pertinent Lab Results: Laboratory Tests 07/28/22 07/28/22 07/28/22 18:25 18:25 18:25 WBC 6.9 RBC 3.86 L Hgb 10.0 L Hct 33.1 L MCV 85.8 MCH 25.9 L MCHC 30.2 L RDW 17.0 H Plt Count 288 MPV 10.4 Immature Gran % (Auto) 0.3 Neut % (Auto) 72.5 Lymph % (Auto) 15.7 L Faulkner % (Auto) 5.8 Eos % (Auto) 5.1 H Baso % (Auto) 0.6 Lymph # (Auto) 1.1 L Faulkner # (Auto) 0.4 Eos # (Auto) 0.4 Baso # (Auto) 0.0 Abs Immat Gran (auto) 0.02 Absolute Neuts (auto) 5.0 Absolute Nucleated RBC 0.000 Nucleated RBC % (auto) 0.0 PT INR APTT 32.0 Sodium 143 Potassium 4.4 Chloride 102 Carbon Dioxide 25 Anion Gap 20 BUN 35 H Creatinine 2.15 H Estim Creat Clear Calc 30.0 Estimated GFR 23 Random Glucose 114 Calcium 9.7 Magnesium 2.0 Iron TIBC % Saturation Unsat Iron Binding Total Bilirubin 0.8 Direct Bilirubin 0.3 AST 16 ALT 6 Alkaline Phosphatase 74 Troponin I High Sens Total Protein 7.1 Albumin 3.9 Lipase 25 Influenza Type A (PCR) Influenza Type B (PCR) RSV RNA Qual (PCR) SARS-CoV-2 RNA (RT-PCR) Blood Type Antibody Screen 07/28/22 07/28/22 07/28/22 18:25 18:25 18:25 WBC RBC Hgb Hct MCV MCH MCHC RDW Plt Count MPV Immature Gran % (Auto) Neut % (Auto) Lymph % (Auto) Faulkner % (Auto) Eos % (Auto) Baso % (Auto) Lymph # (Auto) Faulkner # (Auto) Eos # (Auto) Baso # (Auto) Abs Immat Gran (auto) Absolute Neuts (auto) Absolute Nucleated RBC Nucleated RBC % (auto) PT 12.5 INR 1.1 APTT Sodium Potassium Chloride Carbon Dioxide Anion Gap BUN Creatinine Estim Creat Clear Calc Estimated GFR Random Glucose Calcium Magnesium Iron TIBC % Saturation Unsat Iron Binding Total Bilirubin Direct Bilirubin AST ALT Alkaline Phosphatase Troponin I High Sens 14.2 Total Protein Albumin Lipase Influenza Type A (PCR) NEGATIVE Influenza Type B (PCR) NEGATIVE RSV RNA Qual (PCR) NEGATIVE SARS-CoV-2 RNA (RT-PCR) NEGATIVE Blood Type Antibody Screen 07/28/22 07/28/22 07/29/22 18:25 18:52 05:51 WBC RBC Hgb Hct MCV MCH MCHC RDW Plt Count MPV Immature Gran % (Auto) Neut % (Auto) Lymph % (Auto) Faulkner % (Auto) Eos % (Auto) Baso % (Auto) Lymph # (Auto) Faulkner # (Auto) Eos # (Auto) Baso # (Auto) Abs Immat Gran (auto) Absolute Neuts (auto) Absolute Nucleated RBC Nucleated RBC % (auto) PT INR APTT Sodium 144 Potassium 3.7 Chloride 109 H Carbon Dioxide 22 Anion Gap 17 BUN 32 H Creatinine 1.70 H Estim Creat Clear Calc 37.9 Estimated GFR 30 Random Glucose 96 Calcium 8.5 D Magnesium Iron 47 TIBC 286 % Saturation 16 Unsat Iron Binding 239 Total Bilirubin Direct Bilirubin AST ALT Alkaline Phosphatase Troponin I High Sens Total Protein Albumin Lipase Influenza Type A (PCR) Influenza Type B (PCR) RSV RNA Qual (PCR) SARS-CoV-2 RNA (RT-PCR) Blood Type A Positive Antibody Screen NEGATIVE 07/29/22 05:51 WBC 5.9 RBC 3.22 L Hgb 8.3 L Hct 27.7 L MCV 86.0 MCH 25.8 L MCHC 30.0 L RDW 16.9 H Plt Count 193 D MPV 10.4 Immature Gran % (Auto) 0.3 Neut % (Auto) 57.2 Lymph % (Auto) 26.9 Faulkner % (Auto) 8.0 Eos % (Auto) 7.1 H Baso % (Auto) 0.5 Lymph # (Auto) 1.6 Faulkner # (Auto) 0.5 Eos # (Auto) 0.4 Baso # (Auto) 0.0 Abs Immat Gran (auto) 0.02 Absolute Neuts (auto) 3.4 Absolute Nucleated RBC 0.000 Nucleated RBC % (auto) 0.0 PT INR APTT Sodium Potassium Chloride Carbon Dioxide Anion Gap BUN Creatinine Estim Creat Clear Calc Estimated GFR Random Glucose Calcium Magnesium Iron TIBC % Saturation Unsat Iron Binding Total Bilirubin Direct Bilirubin AST ALT Alkaline Phosphatase Troponin I High Sens Total Protein Albumin Lipase Influenza Type A (PCR) Influenza Type B (PCR) RSV RNA Qual (PCR) SARS-CoV-2 RNA (RT-PCR) Blood Type Antibody Screen Airway Mallampati Class: II TM Dist: >3cm Neck ROM: Full Loose/Missing/Broken Teeth: No Heart: RRR Lungs: CTA Assessment and Plan Assessment Anesthesia Assessment: Anesthesia Plan Discussed and Chart Reviewed Final Anesthetic Review Family History of Problems with Anesthesia: No History of Problems with Anesthesia: No NPO: Yes ASA Class: III Final Preanesthetic Review: No Changes in Pt Med Stat, Meds/Allgs Chart Review ed, Consent Obtained/Reviewed and Anes Risks/Benef Reviewed Patient Risk: Intermediate Procedure Risk: Low Anesthetic Plan Anesthetic Plan: MAC: Disposition: Standard PACU
--- NOTE | 2022-07-29 12:44 | MHC.CM.PN ---
pt liveswith a roomate pt has no servcies she is independent she does not expect to need servcies when dcd has own ride home
--- NOTE | 2022-07-29 13:08 | P.OP_ITS ---
Operative Note Operative Note Date of Service: 07/29/22 Narrative: Procedure: Esophagogastroduodenoscopy Endoscopist: Melinda Gambino MD Indication: Coffee ground emesis, anemia Anesthesia Provider: Dr Trey Love Anesthesia Type: MAC ?? EGD Procedure:?? The procedure, indications, preparation and potential complications were reviewed with the patient, who indicated understanding and gave written informed consent to proceed. A physical exam was performed. The endoscope was introduced through the mouth, and advanced to the second part of duodenum. The mucosa was carefully examined on slow withdrawal of the endoscope. The patient tolerated the procedure well. There were no immediate complications.? ? EGD Findings:? * Esophagus:? The Z line was at 39 cm. There was a villous appearing nodule at the GEJ. Cold forceps biopsies were obtained. * Stomach:? Bilious liquid and semi-solid contents were present in the stomach precluding examination of the fundus despite suctioning almost 400 cc, repositioning, and administering IV Reglan. No fresh or old blood noted in stomach. Body and antrum appeared normal. * Duodenum:? Normal mucosa was noted in the whole of the examined duodenum. The second portion of duodenum was also filled with bilious contents which was suctioned. ? EGD Impressions:? * GEJ nodule (biopsy) * Retained food and bile contents in stomach * Retained food and bile contents in duodenum ?? Recommendations:?? * Follow biopsy results. * No evidence of bleeding (fresh or old) noted on this exam. * Recommend contrasted CT to rule out partial SBO * If patient develops recurrent N,V, please place NGT for decompression. Above has been reviewed with the patient.
[2022-07-29] MEDS: Levothyroxine Sodium 75 MCG TABLET PO (13:37)
[2022-07-29 13:55] LABS: Hematocrit 28.5 % (37.0-47.0); Hemoglobin 8.6 g/dl (12.0-16.0); Mean Corpuscular HGB Conc 30.2 g/dl (31.0-35.0); Mean Corpuscular Hemoglobin 26.1 pg (27.0-33.0); Mean Corpuscular Volume 86.4 fL (80.0-98.0); Mean Platelet Volume 10.5 fL (9.4-12.3); Platelet Count 185 X10*3/uL (160-400); Red Cell Distribution Width 16.9 % (11.0-16.0); White Blood Count 5.4 X10*3/uL (4.8-10.8)
[2022-07-29] MEDS: Amiodarone HCL 200 MG TABLET 100 MG PO (16:00)
[2022-07-29] MEDS: Barium Sulfate Oral (Vanilla) 450 ML ORAL.SUSP 900 ML PO (16:51)
[2022-07-29] MEDS: Lactated Ringers 1,000 ML 80 ML IVCONT (18:16)
[2022-07-30] VITALS (10 sets, daily range): BP systolic 117–147; BP diastolic 57–74; PULSE 73–84; RESP 18–22; TEMP 36.1–37.5; O2SAT 94–96
[2022-07-30 02:34] LABS: OBS Int Ctl Valid YES; OBS1 NEGATIVE (NEGATIVE)
[2022-07-30] MEDS: Pantoprazole Sodium 40 MG/10 ML VIAL IVPUSH ×2 (05:29→17:49)
[2022-07-30] MEDS: Levothyroxine Sodium 75 MCG TABLET PO (05:30)
--- NOTE | 2022-07-30 06:55 | HO.POSTANES ---
Post Anesthesia Evaluation Post Anesthesia Evaluation Vital Signs: Vital Signs Temp Pulse Resp BP Pulse Ox O2 Del Method 07/30/22 03:37 97.9 F 77 18 121/59 L 94 Room Air 07/29/22 23:27 98.7 F 91 18 143/67 H 95 Room Air 07/29/22 20:00 97.1 F 80 18 146/65 H 98 Room Air Anesthesia: Monitored Mental Status: Awake Pain Control: Satisfactory Nausea/Vomiting: None Hydration: Adequate Anesthesia-Related Issues: No Anes. Related Issues
[2022-07-30 07:03] LABS: Hematocrit 25.3 % (37.0-47.0); Hemoglobin 7.7 g/dl (12.0-16.0); Mean Corpuscular HGB Conc 30.4 g/dl (31.0-35.0); Mean Corpuscular Hemoglobin 26.5 pg (27.0-33.0); Mean Corpuscular Volume 86.9 fL (80.0-98.0); Mean Platelet Volume 11.2 fL (9.4-12.3); Platelet Count 185 X10*3/uL (160-400); Red Blood Count 2.91 X10*6/uL (4.20-5.50); Red Cell Distribution Width 16.4 % (11.0-16.0); White Blood Count 4.9 X10*3/uL (4.8-10.8)
[2022-07-30 07:14] LABS: Anion Gap 15 (12-20); Blood Urea Nitrogen 26 mg/dL (9-16); Calcium 8.3 mg/dL (8.4-10.2); Carbon Dioxide 22 mmol/L (22-29); Chloride 110 mmol/L (96-108); Creatinine Clr Calc Pharmacy 45.1; Estimated Glomerular Filt Rate 37; Glucose Random 78 mg/dL (60-115); Potassium 3.7 mmol/L (3.3-5.1); Sodium 143 mmol/L (135-145)
[2022-07-30] MEDS: Amiodarone HCL 200 MG TABLET 100 MG PO (09:51)
--- NOTE | 2022-07-30 13:08 | MHC.CM.PN ---
CM received a call from Patient's Roommate/Ling. Patient sub-leases from Ling;Ling is NOT a CAREGIVER. Ling does not drive, nor would she be physically able to assist Patient once Patient is transported home. Patient will require an ambulance transport home at time of dc. A referral has been made to [facility] for PT/OT/RN & DIGITAL RETOUCHER .CM will follow.
--- NOTE | 2022-07-30 13:44 | PM.CNGS ---
History of Present Illness Consult details Consult date: 07/30/22 Narrative: pt is a 66 year old female who was admitted to the hospital with nausea and vomiting and ? coffee ground emesis.She underwent an EGD which did not show any GI bleed pahtology but a lot of bile and a post procedure showed findings consistent with some ileus/psbo. pt has done better now with no nausea or vomiting and feeling well. She has not really had other issues in regards to bowel obstructions - she has a past history of abdominal surgery PMF Past Medical History Medical History (Updated 07/29/22 @ 12:22 by Anna Cantrell RN) Afib Bilateral cataracts Essential hypertension Hyperlipemia, mixed Hypothyroid MRSA (methicillin resistant Staphylococcus aureus) Pacemaker complications Surgical History Surgical History (Updated 07/29/22 @ 12:21 by Anna Cantrell RN) History of surgery on lower extremity Social History Social History Household Members: Other Household Members Other:: roomate Housing: Apartment Do you presently have visiting nurse or other home services: No (but interested in having a BUSINESS CENTER REPRESENTATIVE) Patient Tobacco Use Status: Never used Tobacco service: No Meds Allergies Allergy/AdvReac Type Severity Reaction Status Date / Time No Known Allergies Allergy Verified 07/28/22 17:39 Active Medications: Current Medications Acetaminophen (Acetaminophen 325 Mg Tablet) 650 mg PO Q6H PRN PRN Reason: Pain, Mild (Pain Scale 1-3) Amiodarone HCl (Amiodarone Hcl 200 Mg Tablet) 100 mg PO DAILY [facility] Last Admin: 07/30/22 09:51 Dose: 100 mg Lactated Ringer's (Lr) 1,000 mls @ 80 mls/hr IVCONT .[id number] [facility] Last Infusion: 07/30/22 10:27 Dose: Infused Levothyroxine Sodium (Levothyroxine Sodium 75 Mcg Tablet) 75 mcg PO DAILY@0600 [facility] Last Admin: 07/30/22 05:30 Dose: 75 mcg Melatonin (Melatonin 3 Mg Tablet) 6 mg PO BEDTIME PRN PRN Reason: Insomnia Ondansetron HCl (Ondansetron Hcl 4 Mg/2 Ml Vial) 4 mg IVPUSH Q8H PRN PRN Reason: Nausea and Vomiting Pantoprazole Sodium (Pantoprazole Sodium 40 Mg/10 Ml Vial) 40 mg IVPUSH BID@0630,1630 [facility] Last Admin: 07/30/22 05:29 Dose: 40 mg Sodium Chloride (0.9 % Sodium Chloride Flush 3 Ml Syringe) 3 ml IVFLUSH QSHIFT [facility] Last Admin: 07/30/22 09:51 Dose: Not Given Home Medications Medication Instructions Recorded Confirmed Last Taken Type amiodarone 200 mg tablet 0.5 tab PO DAILY 07/28/22 07/29/22 07/28/22 History carvedilol 12.5 mg tablet 1 tab PO DAILY 07/28/22 07/29/22 07/28/22 History carvedilol 12.5 mg tablet 2 tab PO BEDTIME 07/28/22 07/29/22 07/27/22 History doxycycline monohydrate 100 mg 1 cap PO BID 07/28/22 07/29/22 07/28/22 History capsule levothyroxine 75 mcg tablet 1 tab PO DAILY 07/28/22 07/29/22 07/28/22 History simvastatin 20 mg tablet 1 tab PO BEDTIME 07/28/22 07/29/22 07/27/22 History valsartan 40 mg tablet 1 tab PO DAILY 07/28/22 07/29/22 07/28/22 History ibuprofen 200 mg tablet 400 mg PO Q6H PRN Pain 07/29/22 07/29/22 07/28/22 History Physical Exam Vital Signs: Vital Signs: Last Vital Signs Temp 98.0 F 07/30/22 11:38 Pulse 79 07/30/22 11:38 Resp 20 07/30/22 11:38 BP 138/74 07/30/22 11:38 Pulse Ox 96 07/30/22 11:38 O2 Del Method 07/30/22 11:38 BMI result Body Mass Index 28.6 Const: General: cooperative, healthy appearing and comfortable Nutritional Appearance: obese Orientation/consciousness: oriented to person, oriented to place and oriented to time Resp: Effort & Inspection: normal respiratory effort and able to speak in complete sentences Auscultation: clear to auscultation bilaterally Cardio: Rate: regular rate Rhythm: regular rhythm GI: Other: soft mild distension nontender has bowel sounds active Skin: Other: right lower extremity with dressings Neuro: General: oriented to person, oriented to place and oriented to time Results Labs Result diagrams: 07/30/22 06:20 07/30/22 06:20 Labs: Abnormal lab results 07/28/22 07/29/22 07/30/22 Range/Units 18:52 13:46 06:20 RBC 3.30 L 2.91 L (4.20-5.50) X10*6/uL Hgb 8.6 L 7.7 L (12.0-16.0) g/dl Hct 28.5 L 25.3 L (37.0-47.0) % MCH 26.1 L 26.5 L (27.0-33.0) pg MCHC 30.2 L 30.4 L (31.0-35.0) g/dl RDW 16.9 H 16.4 H (11.0-16.0) % Chloride (96-108) mmol/L BUN (9-16) mg/dL Creatinine (0.5-1.4) mg/dL Calcium (8.4-10.2) mg/dL Crossmatch See Detail 07/30/22 Range/Units 06:20 RBC (4.20-5.50) X10*6/uL Hgb (12.0-16.0) g/dl Hct (37.0-47.0) % MCH (27.0-33.0) pg MCHC (31.0-35.0) g/dl RDW (11.0-16.0) % Chloride 110 H (96-108) mmol/L BUN 26 H (9-16) mg/dL Creatinine 1.43 H (0.5-1.4) mg/dL Calcium 8.3 L (8.4-10.2) mg/dL Crossmatch Short CBC 07/29/22 07/30/22 Range/Units 13:46 06:20 WBC 5.4 4.9 (4.8-10.8) X10*3/uL Hgb 8.6 L 7.7 L (12.0-16.0) g/dl Hct 28.5 L 25.3 L (37.0-47.0) % Plt Count 185 185 (160-400) X10*3/uL BMP 07/30/22 06:20 Sodium 143 Potassium 3.7 Chloride 110 H Carbon Dioxide 22 BUN 26 H Creatinine 1.43 H Calcium 8.3 L All other labs normal. Imaging Abdominal x-ray: image reviewed Abdomen CT scan report/results: report reviewed and image reviewed Assessment and Plan (1) Anemia due to blood loss: Status: Acute Plan 66 year old female with probable psbo maybe due to adhesions or just mild ileus - xrays showing po contrast in rectum and colon and pt hungry nontender active BS and had a bowel movement. advance diet and see how she does. no need for any surgical intervention low residue diet Procedures Date of Service Date of Service: 07/30/22
--- NOTE | 2022-07-30 13:47 | P.PNIM_ITS ---
Subjective Subjective Date of Service: 07/30/22 Interval History: Feeling better this morning, no nausea no vomiting since admission, moving bowels mild lower abdominal discomfort, no fevers no chills, no other acute issues overnight, complaining of left foot discomfort. Review of Systems [employer] no headache no dizziness CVS no chest pain Respiratory no cough, no sputum production Review of Systems: Yes all other systems are reviewed and are negative Physical Exam 2 Vital Signs: Vital Signs: Last Vital Signs Temp 98.0 F 07/30/22 11:38 Pulse 79 07/30/22 11:38 Resp 20 07/30/22 11:38 BP 138/74 07/30/22 11:38 Pulse Ox 96 07/30/22 11:38 O2 Del Method 07/30/22 11:38 BMI result Body Mass Index 28.6 Const: Other: General awake aler t x3, in no acute distress.? Neck? s upple no JVD. CVS? regular rate rhyt hm, Respiratory toma ngs clear to auscu ltation, no respir atory distress, no wheeze, no rhonch i. Gastrointestina l abdomen soft, no ntender, bowel denise nds audible, no gu arding , no rigidi ty. Extremities no edema right leg, Left leg wound ext ending from left f oot to mid leg hea ling well no drain age, no foul odor, significant swell ing and dry scaly skin chronic as pe r patient Neuro no nfocal , speech cl ear Psych appropri ate affect Objective Data Active Medications Acetaminophen (Acetaminophen 325 Mg Tablet) 650 mg PO Q6H PRN PRN Reason: Pain, Mild (Pain Scale 1-3) Amiodarone HCl (Amiodarone Hcl 200 Mg Tablet) 100 mg PO DAILY [facility] Last Admin: 07/30/22 09:51 Dose: 100 mg Documented By: DEDE Lactated Ringer's (Lr) 1,000 mls @ 80 mls/hr IVCONT .[id number] [facility] Last Infusion: 07/30/22 10:27 Dose: 0 mls/hr Documented By: DEDE Levothyroxine Sodium (Levothyroxine Sodium 75 Mcg Tablet) 75 mcg PO DAILY@0600 [facility] Last Admin: 07/30/22 05:30 Dose: 75 mcg Documented By: ROSALVA Melatonin (Melatonin 3 Mg Tablet) 6 mg PO BEDTIME PRN PRN Reason: Insomnia Ondansetron HCl (Ondansetron Hcl 4 Mg/2 Ml Vial) 4 mg IVPUSH Q8H PRN PRN Reason: Nausea and Vomiting Pantoprazole Sodium (Pantoprazole Sodium 40 Mg/10 Ml Vial) 40 mg IVPUSH BID@0630,1630 [facility] Last Admin: 07/30/22 05:29 Dose: 40 mg Documented By: ROSALVA Sodium Chloride (0.9 % Sodium Chloride Flush 3 Ml Syringe) 3 ml IVFLUSH QSHIFT [facility] Last Admin: 07/30/22 09:51 Dose: Not Given Documented By: DEDE Non-Admin Reason: IV Running Labs CBC & Chem 7: 07/30/22 06:20 07/30/22 06:20 Labs: Laboratory Results - last 24 hr 07/28/22 07/29/22 07/30/22 18:52 13:46 02:14 MCV 86.4 MCH 26.1 L MCHC 30.2 L RDW 16.9 H Plt Count 185 MPV 10.5 Absolute Nucleated RBC 0.000 Nucleated RBC % (auto) 0.0 Anion Gap Estim Creat Clear Calc Estimated GFR Random Glucose Calcium Stool Occult Blood NEGATIVE Blood Type A Positive Antibody Screen NEGATIVE Crossmatch See Detail 07/30/22 07/30/22 06:20 06:20 MCV 86.9 MCH 26.5 L MCHC 30.4 L RDW 16.4 H Plt Count 185 MPV 11.2 Absolute Nucleated RBC 0.000 Nucleated RBC % (auto) 0.0 Anion Gap 15 Estim Creat Clear Calc 45.1 Estimated GFR 37 Random Glucose 78 Calcium 8.3 L Stool Occult Blood Blood Type Antibody Screen Crossmatch Assessment and Plan (1) GI bleed: Status: Acute (2) SANDEEP (acute kidney injury): Status: Acute (3) Hyperlipemia, mixed: Status: Acute (4) Afib: Status: Acute (5) Essential hypertension: Status: Acute (6) Hypothyroid: Status: Acute Plan 66-year-old female with pertinent history of atrial fibrillation not on anticoagulation, essential hypertension, hypothyroidism, mixed hyperlipidemia who presents for evaluation of coffee-ground emesis. #.? Acute upper GI bleed/ Epigastric pain No recurrent episode of hematemesis, no nausea no vomiting, no significant abdominal pain, moving bowels Underwent upper endoscopy that showed gastric esophageal junction nodule biopsy obtained, retained food and bile contents in stomach and do denies therefore obtain CT abdomen and pelvis that showed small bowel obstruction with transition in the right lower quadrant with fecalized small bowel contents immediately proximal to the transition could represent bezoar or be secondary to prolonged small bowel transit time Patient seen by General surgery KUB obtained report pending but since patient clinically appears stable will place on clear liquid diet #.?Acute blood loss anemia with history of chronic normocytic anemia Hematocrit dropped from 33 to 25.3 this morning, therefore will transfuse 1 unit of packed RBC/ iron studies negative for iron deficiency, follow CBC #.?acute kidney injury, likely pre renal Unknown baseline, creatinine trending down ,cont. to hold valsartan , avoid hypotension,follow bmp DC IV fluid. #.? Hypothyroidism -continue Synthroid #.? Atrial fibrillation -not on anticoagulation. cont. amiodarone and Coreg?, continue tele monitor #.? 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 Mechanical.? Avoid anticoagulation in the setting of acute GI bleed Full code Patient will require continued inpatient hospital stay for evaluation of anemia requiring blood transfusion and also for small-bowel obstruction on clear liquid diet Quality Stroke Does the patient have a stroke diagnosis?: No VTE Prior VTE?: No VTE Risk Level:: Medical - moderate - high VTE Device Contraindication: N/A - Device Ordered VTE Drug Contraindication: Treatment Not Indicated
--- NOTE | 2022-07-30 14:20 | P.CONWO_ITS ---
History of Present Illness Data of Consult Service Date: 07/30/22 Requesting physician: Steve Sharma Primary Care Provider: Unknown Physician HPI Reason for consult: left leg wound The pt is a 66 year old female known to us at wound care with bullous pemphigoid issues followed by [facility] in [place] and with complex treatment of medical and surgical issues. She is in the hospital with other issues and we are being consulted for wound care orders . [facility] Medical History (Updated 07/30/22 @ 16:29 by Talia Cruz MD) Afib Bilateral cataracts Essential hypertension Hyperlipemia, mixed Hypothyroid MRSA (methicillin resistant Staphylococcus aureus) Pacemaker complications Surgical History (Updated 07/29/22 @ 12:21 by Anna Cantrell RN) History of surgery on lower extremity Social History Household Members: Other Household Members Other:: roomate Housing: Apartment Do you presently have visiting nurse or other home services: No (but interested in having a [employer] COORDINATOR) Patient Tobacco Use Status: Never used Tobacco service: No Meds Allergies Allergy/AdvReac Type Severity Reaction Status Date / Time No Known Allergies Allergy Verified 07/28/22 17:39 Active Medications: Current Medications Acetaminophen (Acetaminophen 325 Mg Tablet) 650 mg PO Q6H PRN PRN Reason: Pain, Mild (Pain Scale 1-3) Amiodarone HCl (Amiodarone Hcl 200 Mg Tablet) 100 mg PO DAILY [facility] Last Admin: 07/30/22 09:51 Dose: 100 mg Lactated Ringer's (Lr) 1,000 mls @ 80 mls/hr IVCONT .[id number] [facility] Last Infusion: 07/30/22 10:27 Dose: Infused Levothyroxine Sodium (Levothyroxine Sodium 75 Mcg Tablet) 75 mcg PO DAILY@0600 [facility] Last Admin: 07/30/22 05:30 Dose: 75 mcg Melatonin (Melatonin 3 Mg Tablet) 6 mg PO BEDTIME PRN PRN Reason: Insomnia Ondansetron HCl (Ondansetron Hcl 4 Mg/2 Ml Vial) 4 mg IVPUSH Q8H PRN PRN Reason: Nausea and Vomiting Pantoprazole Sodium (Pantoprazole Sodium 40 Mg/10 Ml Vial) 40 mg IVPUSH BID@0630,1630 [facility] Last Admin: 07/30/22 05:29 Dose: 40 mg Sodium Chloride (0.9 % Sodium Chloride Flush 3 Ml Syringe) 3 ml IVFLUSH QSHIFT [facility] Last Admin: 07/30/22 09:51 Dose: Not Given Home Medications Medication Instructions Recorded Confirmed Last Taken Type amiodarone 200 mg tablet 0.5 tab PO DAILY 07/28/22 07/29/22 07/28/22 History carvedilol 12.5 mg tablet 1 tab PO DAILY 07/28/22 07/29/22 07/28/22 History carvedilol 12.5 mg tablet 2 tab PO BEDTIME 07/28/22 07/29/22 07/27/22 History doxycycline monohydrate 100 mg 1 cap PO BID 07/28/22 07/29/22 07/28/22 History capsule levothyroxine 75 mcg tablet 1 tab PO DAILY 07/28/22 07/29/22 07/28/22 History simvastatin 20 mg tablet 1 tab PO BEDTIME 07/28/22 07/29/22 07/27/22 History valsartan 40 mg tablet 1 tab PO DAILY 07/28/22 07/29/22 07/28/22 History ibuprofen 200 mg tablet 400 mg PO Q6H PRN Pain 07/29/22 07/29/22 07/28/22 History Physical Exam Vital Signs and Narrative: Vital Signs: Last Vital Signs Temp 98.0 F 07/30/22 11:38 Pulse 79 07/30/22 11:38 Resp 20 07/30/22 11:38 BP 138/74 07/30/22 11:38 Pulse Ox 96 07/30/22 11:38 O2 Del Method 07/30/22 11:38 BMI result Body Mass Index 28.6 Skin: Other: left leg with hypertrophy of soft foot tissue and scaly tissue and left leg with areas of open wounds superficial into fat and bleeding dermal tissue. areas opened anterior and posterior leg. no evidence of cellulitis no blistered skin areas Results Labs CBC and Chem 7: 07/30/22 06:20 07/30/22 06:20 Labs: Laboratory Results - last 24 hr 07/28/22 07/30/22 07/30/22 18:52 02:14 06:20 MCV 86.9 MCH 26.5 L MCHC 30.4 L RDW 16.4 H Plt Count 185 MPV 11.2 Absolute Nucleated RBC 0.000 Nucleated RBC % (auto) 0.0 Anion Gap Estim Creat Clear Calc Estimated GFR Random Glucose Calcium Stool Occult Blood NEGATIVE Blood Type A Positive Antibody Screen NEGATIVE Crossmatch See Detail 07/30/22 06:20 MCV MCH MCHC RDW Plt Count MPV Absolute Nucleated RBC Nucleated RBC % (auto) Anion Gap 15 Estim Creat Clear Calc 45.1 Estimated GFR 37 Random Glucose 78 Calcium 8.3 L Stool Occult Blood Blood Type Antibody Screen Crossmatch Imaging Radiologist's Impressions: Impressions Abdomen/Pelvis CT 07/29/22 17:05 IMPRESSION: Small bowel obstruction with transition in the right lower quadrant. There are fecalized small bowel contents immediately proximal to the transition. This could represent a bezoar or be secondary to prolonged small bowel transit time/stasis. Recommend surgery consultation. The findings and recommendations were discussed with Steve Sharma MD by telephone at 07/29/2022 6:07 PM and it was ascertained that the content and urgency of the report was understood at the time of direct communication. Assessment and Plan (1) Bullous pemphigoid: Status: Acute Plan 66 year old female with bullous pemphigoid disease and left lower leg lesions - generally clean and not needing debridement at this time - plan to cover opened wound areas with silver alginate and wrap with aBD and jacob bandages. once dc home pt can follow up in wound care clinic.
--- NOTE | 2022-07-30 16:34 | PC.NURSE ---
dressing change done to lle. wash with ns. silver alginate placed to open areas, covered with non woven gauze. abd pads placed, leg wrapped with kerlix and jacob wrap. patient tolerates with no complaints of discomfort. drainage noted to be scant sanguineous.
[2022-07-30] MEDS: Lactated Ringers 1,000 ML 80 ML IVCONT (17:57)
[2022-07-31] VITALS (7 sets, daily range): BP systolic 119–127; BP diastolic 58–94; PULSE 76–85; RESP 17–18; TEMP 36.2–37; O2SAT 95–98
[2022-07-31] MEDS: Lactated Ringers 1,000 ML 80 ML IVCONT (06:22)
[2022-07-31] MEDS: Pantoprazole Sodium 40 MG/10 ML VIAL IVPUSH ×2 (06:23→16:21)
[2022-07-31] MEDS: Levothyroxine Sodium 75 MCG TABLET PO (06:23)
[2022-07-31 06:30] LABS: Hemoglobin 8.5 g/dl (12.0-16.0); Mean Corpuscular HGB Conc 31.5 g/dl (31.0-35.0); Mean Corpuscular Hemoglobin 26.8 pg (27.0-33.0); Mean Corpuscular Volume 85.2 fL (80.0-98.0); Mean Platelet Volume 10.5 fL (9.4-12.3); Platelet Count 178 X10*3/uL (160-400); Red Blood Count 3.17 X10*6/uL (4.20-5.50); Red Cell Distribution Width 15.9 % (11.0-16.0); White Blood Count 4.6 X10*3/uL (4.8-10.8)
[2022-07-31 06:58] LABS: Anion Gap 13 (12-20); Blood Urea Nitrogen 20 mg/dL (9-16); Calcium 8.1 mg/dL (8.4-10.2); Carbon Dioxide 24 mmol/L (22-29); Chloride 107 mmol/L (96-108); Creatinine Clr Calc Pharmacy 53.3; Estimated Glomerular Filt Rate 44; Glucose Random 95 mg/dL (60-115); Potassium 3.6 mmol/L (3.3-5.1); Sodium 140 mmol/L (135-145)
[2022-07-31] MEDS: Amiodarone HCL 200 MG TABLET 100 MG PO (09:10)
[2022-07-31] MEDS: Valsartan 40 MG TABLET PO (10:26)
[2022-07-31] MEDS: carvediloL 12.5 MG TABLET PO (10:27)
--- NOTE | 2022-07-31 14:55 | P.PNIM_ITS ---
Subjective Subjective Date of Service: 07/31/22 Interval History: tolerating clear liquids passing gas no hx abd surgery Review of Systems Review of Systems: Yes all other systems are reviewed and are negative Physical Exam Vital Signs: Vital Signs: Last Vital Signs Temp 98.3 F 07/31/22 11:30 Pulse 77 07/31/22 11:30 Resp 18 07/31/22 11:30 BP 119/61 07/31/22 11:30 Pulse Ox 96 07/31/22 11:30 O2 Del Method 07/31/22 11:30 FiO2 98 07/30/22 18:59 BMI result Body Mass Index 28.6 Gen: in no acute distress HEENT: sclera anicteric, moist mucus membranes Neck: supple Lungs: clear to auscultation bilaterally Heart: regular rate and rhythm, no murmurs Abd: soft, non-tender, non-distended Ext: no edema Skin: warm/well-perfused, multiple open wounds in LLE Neuro: alert and oriented x3, no focal findings Psych: appropriate affect Objective Data Active Medications Acetaminophen (Acetaminophen 325 Mg Tablet) 650 mg PO Q6H PRN PRN Reason: Pain, Mild (Pain Scale 1-3) Amiodarone HCl (Amiodarone Hcl 200 Mg Tablet) 100 mg PO DAILY [facility] Last Admin: 07/31/22 09:10 Dose: 100 mg Documented By: GLADYS Atorvastatin Calcium (Atorvastatin Calcium 10 Mg Tablet) 10 mg PO BEDTIME [facility] Carvedilol (Carvedilol 12.5 Mg Tablet) 12.5 mg PO DAILY [facility]; Protocol Last Admin: 07/31/22 10:27 Dose: 12.5 mg Documented By: GLADYS Carvedilol (Carvedilol 12.5 Mg Tablet) 25 mg PO BEDTIME [facility]; Protocol Doxycycline Hyclate (Doxycycline Hyclate 100 Mg Tablet) 100 mg PO BID [facility] Last Admin: 07/31/22 10:28 Dose: 100 mg Documented By: GLADYS Levothyroxine Sodium (Levothyroxine Sodium 75 Mcg Tablet) 75 mcg PO DAILY@0600 [facility] Last Admin: 07/31/22 06:23 Dose: 75 mcg Documented By: GLADYS Melatonin (Melatonin 3 Mg Tablet) 6 mg PO BEDTIME PRN PRN Reason: Insomnia Ondansetron HCl (Ondansetron Hcl 4 Mg/2 Ml Vial) 4 mg IVPUSH Q8H PRN PRN Reason: Nausea and Vomiting Pantoprazole Sodium (Pantoprazole Sodium 40 Mg/10 Ml Vial) 40 mg IVPUSH BID@0630,1630 [facility] Last Admin: 07/31/22 06:23 Dose: 40 mg Documented By: GLADYS Sodium Chloride (0.9 % Sodium Chloride Flush 3 Ml Syringe) 3 ml IVFLUSH QSHIFT [facility] Last Admin: 07/31/22 06:23 Dose: Not Given Documented By: GLADYS Non-Admin Reason: IV Running Valsartan (Valsartan 40 Mg Tablet) 40 mg PO DAILY [facility]; Protocol Last Admin: 07/31/22 10:26 Dose: 40 mg Documented By: GLADYS Labs CBC & Chem 7: 07/31/22 06:11 07/31/22 06:11 Labs: Laboratory Results - last 24 hr 07/28/22 07/31/22 07/31/22 18:52 06:11 06:11 MCV 85.2 MCH 26.8 L MCHC 31.5 RDW 15.9 Plt Count 178 MPV 10.5 Absolute Nucleated RBC 0.000 Nucleated RBC % (auto) 0.0 Anion Gap 13 Estim Creat Clear Calc 53.3 Estimated GFR 44 Random Glucose 95 Calcium 8.1 L Blood Type A Positive Antibody Screen NEGATIVE Crossmatch See Detail Pathology 07/29/22 GE junction, 39 cm, biopsy: - Cardiac-type mucosa with mild chronic active inflammation; no intestinal metaplasia seen. - No squamous epithelium identified. Assessment and Plan (1) GI bleed: Status: Acute (2) SANDEEP (acute kidney injury): Status: Acute (3) Hyperlipemia, mixed: Status: Acute (4) Afib: Status: Acute (5) Essential hypertension: Status: Acute (6) Hypothyroid: Status: Acute Plan d#4 66yo F with AF not on AC, essential HTN, hypothyroidism, HLD admitted for coffee-ground emesis # acute UGIB - s/p EGD 07/[address] Gambino showing benign GEJ nodule [path above] -> retained f ood + bile contents -> CT showed SBO with RLQ transition zone with fecalized SB contents proximal- bezoar vs prolonged SB transit time? # SBO - seen by Surgery, KUB with decreased SB dilation, no operative intervention indicated, advance diet # acute-chronic anemia due to GI blood loss - transfused 1u pRBCs with appropriate increase in H+H # SANDEEP - resolved with IV fluids + blood, restart valsartan # AF - not on AC. continue amiodarone + carvedilol # hypothyroidism - continue LT4 # HTN - continue carvedilol, resume valsartan # bullous pemphigoid - Wound Care consulted: generally clean and not needing debridement at this time - plan to cover opened wound areas with silver alginate and wrap with aBD and jacob bandages. once dc home pt can follow up in wound care clinic. # VTE ppx: SCDs In my clinical judgment, the patient requires continued inpatient hospitalization for the following reasons: monitoring after GI bleeding Quality Stroke Does the patient have a stroke diagnosis?: No VTE Prior VTE?: No VTE Risk Level:: Medical - moderate - high VTE Device Contraindication: N/A - Device Ordered VTE Drug Contraindication: Treatment Not Indicated
[2022-07-31] MEDS: 0.9 % Sodium Chloride Flush 3 ML SYRINGE IVFLUSH (16:21)
[2022-07-31] MEDS: Atorvastatin Calcium 10 MG TABLET PO (20:23)
[2022-07-31] MEDS: carvediloL 12.5 MG TABLET 25 MG PO (20:23)
[2022-08-01 03:43] VITALS: BP 123/58; PULSE 72; RESP 18; TEMP 36.9; O2SAT 97
[2022-08-01] MEDS: Pantoprazole Sodium 40 MG/10 ML VIAL IVPUSH (05:32)
[2022-08-01] MEDS: Levothyroxine Sodium 75 MCG TABLET PO (05:32)
[2022-08-01] MEDS: 0.9 % Sodium Chloride Flush 3 ML SYRINGE IVFLUSH ×2 (05:32→09:09)
[2022-08-01 06:52] LABS: Hematocrit 26.9 % (37.0-47.0); Hemoglobin 8.5 g/dl (12.0-16.0); Mean Corpuscular HGB Conc 31.6 g/dl (31.0-35.0); Mean Corpuscular Hemoglobin 27.1 pg (27.0-33.0); Mean Corpuscular Volume 85.7 fL (80.0-98.0); Mean Platelet Volume 10.4 fL (9.4-12.3); Platelet Count 177 X10*3/uL (160-400); Red Blood Count 3.14 X10*6/uL (4.20-5.50); Red Cell Distribution Width 16.6 % (11.0-16.0); White Blood Count 4.6 X10*3/uL (4.8-10.8)
[2022-08-01 07:05] LABS: Anion Gap 16 (12-20); Blood Urea Nitrogen 17 mg/dL (9-16); Carbon Dioxide 22 mmol/L (22-29); Chloride 108 mmol/L (96-108); Creatinine Clr Calc Pharmacy 50.8; Estimated Glomerular Filt Rate 42; Glucose Random 112 mg/dL (60-115); Potassium 3.7 mmol/L (3.3-5.1); Sodium 142 mmol/L (135-145)
[2022-08-01 07:27] VITALS: BP 121/58; PULSE 75; RESP 20; TEMP 36.6; O2SAT 97
[2022-08-01 08:47] VITALS: BP 121/58; PULSE 75; O2SAT 97
[2022-08-01] MEDS: Valsartan 40 MG TABLET PO (09:08)
[2022-08-01] MEDS: carvediloL 12.5 MG TABLET PO (09:08)
[2022-08-01] MEDS: Amiodarone HCL 200 MG TABLET 100 MG PO (09:08)
--- NOTE | 2022-08-01 09:52 | PM.DS ---
DS: Providers Provider Date of Service: 08/01/22 Date of admission: 07/28/22 21:20 Date of discharge: 08/01/22 Primary care physician: Unknown Physician Consults: 07/28/22 21:22 Consult to Gastroenterology Routine Consulting Provider: Melinda Gambino Reason for consultation: coffee ground emesis Has provider been notified: No 07/29/22 15:54 Consult to Wound Care Routine Consulting Provider: Talia Cruz Reason for consultation: left leg wound ch Has provider been notified: No 07/29/22 18:08 Consult to General Surgery Routine Consulting Provider: Talia Cruz Reason for consultation: SBO DS: Diagnosis Discharge Diagnosis (1) Coffee ground emesis: Status: Acute (2) Partial small bowel obstruction: Status: Acute (3) Bullous pemphigoid: Status: Acute (4) Anemia due to blood loss: Status: Acute (5) Gastritis: Status: Acute (6) Acute kidney injury: Status: Acute DS: Summary Hospital Course Hospital Course: from admission H+P by hospitalist Mandeep Torres MD, 07/26/22: This is a 66-year-old female with pertinent history of atrial fibrillation not on anticoagulation, essential hypertension, hypothyroidism, mixed hyperlipidemia who presents for evaluation of coffee-ground emesis.? Patient states she had 2 episodes of coffee-ground emesis over 2 days, last being on the day of presentation.? Also has associated epigastric pain, constant and without any relieving factors.? Patient has had reduced p.o. intake due to epigastric pain and coffee-ground emesis.? Denies similar his history in the past.? Never has had upper GI scope.? Patient admits to using ibuprofen often in the last 6 months due to her left foot discomfort.? Denies melena or hematochezia.? No fever, chills, chest discomfort, palpitations, shortness of breath, changes in urinary or bowel habits In the emergency department, patient was found to be tachycardic and elevated creatinine noted. This 66yo F with AF not on AC, essential HTN, hypothyroidism, HLD, and bullous pemphigoid was admitted for coffee-ground emesis. She did get 1 unit of packed red blood cells with appropriate increase in H+H. SANDEEP resolved with IV fluid hydration. GI was consulted. Dr Gambino performed EGD on 07/29 notable for a GE junction nodule [pathology: chronic active gastritis] and retained food and bile contents. Contrast CT showed SBO with RLQ transition zone with fecalized SB contents proximally concerning for bezoar vs prolonged SB transit time. Surgery was consulted. KUB showed decreased small bowel dilation and she started passing gas. No NG tube or operative intervention was indicated. Her diet was advanced with appropriate GI function. Wound Care was consulted regarding her bullous pemphigoid and no debridement was indicated. Time Spent with Patient Time attestation: Total time spent providing and/or coordinating discharge services: 40 Discharge coordination time: Greater than 30 minutes Quality: Safe Use of Opioids Does Pt have an Active Cancer Diagnosis on the Problem List?: No Quality: Stroke Does the patient have a stroke diagnosis?: No Physical Exam Vital Signs: Vital Signs: Last Vital Signs Temp 98 F 08/01/22 07:27 Pulse 75 08/01/22 08:47 Resp 20 08/01/22 07:27 BP 121/58 L 08/01/22 08:47 Pulse Ox 97 08/01/22 08:47 O2 Del Method 08/01/22 07:27 FiO2 98 07/30/22 18:59 BMI result Body Mass Index 28.6 Gen: in no acute distress HEENT: sclera anicteric, moist mucus membranes Neck: supple Lungs: clear to auscultation bilaterally Heart: regular rate and rhythm, no murmurs Abd: soft, non-tender, non-distended Ext: no edema Skin: warm/well-perfused, multiple open wounds in LLE Neuro: alert and oriented x3, no focal findings Psych: appropriate affect DS: Data Data Completed and Pending Completed studies during hospitalization [Text1]: Laboratory Results WBC 4.6 X10*3/uL (4.8-10.8) L 08/01/22 06:40 RBC 3.14 X10*6/uL (4.20-5.50) L 08/01/22 06:40 Hgb 8.5 g/dl (12.0-16.0) L 08/01/22 06:40 Hct 26.9 % (37.0-47.0) L 08/01/22 06:40 MCV 85.7 fL (80.0-98.0) 08/01/22 06:40 MCH 27.1 pg (27.0-33.0) 08/01/22 06:40 MCHC 31.6 g/dl (31.0-35.0) 08/01/22 06:40 RDW 16.6 % (11.0-16.0) H 08/01/22 06:40 Plt Count 177 X10*3/uL (160-400) 08/01/22 06:40 MPV 10.4 fL (9.4-12.3) 08/01/22 06:40 Immature Gran % (Auto) 0.3 % (0.0-0.4) 07/29/22 05:51 Neut % (Auto) 57.2 % (45-73) 07/29/22 05:51 Lymph % (Auto) 26.9 % (20-40) 07/29/22 05:51 [place] % (Auto) 8.0 % (2-11) 07/29/22 05:51 Eos % (Auto) 7.1 % (0-4) H 07/29/22 05:51 Baso % (Auto) 0.5 % (0-2) 07/29/22 05:51 Lymph # (Auto) 1.6 X10*3/uL (1.2-4.9) 07/29/22 05:51 [place] # (Auto) 0.5 X10*3/uL (0.1-1.2) 07/29/22 05:51 Eos # (Auto) 0.4 X10*3/uL (0.0-0.4) 07/29/22 05:51 Baso # (Auto) 0.0 X10*3/uL (0.0-0.2) 07/29/22 05:51 Abs Immat Gran (auto) 0.02 X10*3/uL (0.00-0.03) 07/29/22 05:51 Absolute Neuts (auto) 3.4 x10*3/uL (2.0-8.3) 07/29/22 05:51 Absolute Nucleated RBC 0.000 X10*3/uL (0.0-0.012) 08/01/22 06:40 Nucleated RBC % (auto) 0.0 /100WBC (0.0-0.2) 08/01/22 06:40 PT 12.5 SEC (10.0-13.1) 07/28/22 18:25 INR 1.1 (0.9-1.1) 07/28/22 18:25 APTT 32.0 SEC (26.0-36.4) 07/28/22 18:25 Sodium 142 mmol/L (135-145) 08/01/22 06:40 Potassium 3.7 mmol/L (3.3-5.1) 08/01/22 06:40 Chloride 108 mmol/L (96-108) 08/01/22 06:40 Carbon Dioxide 22 mmol/L (22-29) 08/01/22 06:40 Anion Gap 16 (12-20) 08/01/22 06:40 BUN 17 mg/dL (9-16) H 08/01/22 06:40 Creatinine 1.27 mg/dL (0.5-1.4) 08/01/22 06:40 Estim Creat Clear Calc 50.8 08/01/22 06:40 Estimated GFR 42 08/01/22 06:40 Random Glucose 112 mg/dL (60-115) 08/01/22 06:40 Calcium 8.0 mg/dL (8.4-10.2) L 08/01/22 06:40 Magnesium 2.0 mg/dL (1.6-2.6) 07/28/22 18:25 Iron 47 mcg/dL (30-160) 07/28/22 18:25 TIBC 286 mcg/dL (228-428) 07/28/22 18:25 % Saturation 16 % (15-50) 07/28/22 18:25 Unsat Iron Binding 239 ug/dL 07/28/22 18:25 Total Bilirubin 0.8 mg/dL (0.0-1.0) 07/28/22 18:25 Direct Bilirubin 0.3 mg/dL (0.0-0.5) 07/28/22 18:25 AST 16 U/L (5-31) 07/28/22 18:25 ALT 6 U/L (0-31) 07/28/22 18:25 Alkaline Phosphatase 74 U/L (39-117) 07/28/22 18:25 Troponin I High Sens 14.2 ng/L (<3.5-17.0) 07/28/22 18:25 Total Protein 7.1 g/dL (6.5-8.0) 07/28/22 18:25 Albumin 3.9 g/dL (3.5-5.0) 07/28/22 18:25 Lipase 25 U/L (8-78) 07/28/22 18:25 Stool Occult Blood NEGATIVE (NEGATIVE) 07/30/22 02:14 Influenza Type A (PCR) NEGATIVE (Negative) 07/28/22 18:25 Influenza Type B (PCR) NEGATIVE (Negative) 07/28/22 18:25 RSV RNA Qual (PCR) NEGATIVE (Negative) 07/28/22 18:25 SARS-CoV-2 RNA (RT-PCR) NEGATIVE (Negative) 07/28/22 18:25 Blood Type A Positive 07/28/22 18:52 Antibody Screen NEGATIVE 07/28/22 18:52 Crossmatch See Detail 07/28/22 18:52 Impressions Chest X-Ray 07/28/22 19:20 Impression: 1. Borderline enlarged cardiac silhouette. Ectatic thoracic aorta. 2. Prominent pulmonary arteries which can be seen in the setting of pulmonary hypertension. Foot X-Ray 07/28/22 19:20 IMPRESSION: 1. No acute fracture or dislocation appreciated however flexion of digits on all views and overlying bandaging material limits evaluation. 2. Significant soft tissue swelling along the dorsum of the foot. 3. Osteopenia. Abdomen/Pelvis CT 07/29/22 17:05 IMPRESSION: Small bowel obstruction with transition in the right lower quadrant. There are fecalized small bowel contents immediately proximal to the transition. This could represent a bezoar or be secondary to prolonged small bowel transit time/stasis. Recommend surgery consultation. The findings and recommendations were discussed with Steve Sharma MD by telephone at 07/29/2022 6:07 PM and it was ascertained that the content and urgency of the report was understood at the time of direct communication. KUB X-Ray 07/30/22 08:20 IMPRESSION: Interval decrease in small bowel dilatation compared to yesterday's exam. Pathology 07/29/22 GE junction, 39 cm, biopsy: - Cardiac-type mucosa with mild chronic active inflammation; no intestinal metaplasia seen. - No squamous epithelium identified. Discharge Plan Discharge Anticipated Discharge Date/Time: 08/01/22 09:47 Patient Disposition: Home, Self-Care Discharge Diagnosis: coffee-ground emesis, partial small bowel obstruction -> both resolved Referrals: Talia Cruz MD [Physician] - 1 Week Physician,Gm J [Primary Care Provider] - 1 Week Melinda Gambino MD [Physician] - 1 Week Discharge Medications: Continued carvedilol 12.5 mg tablet 1 tab PO DAILY carvedilol 12.5 mg tablet 2 tab PO BEDTIME amiodarone 200 mg tablet 0.5 tab PO DAILY levothyroxine 75 mcg tablet 1 tab PO DAILY doxycycline monohydrate 100 mg capsule 1 cap PO BID simvastatin 20 mg tablet 1 tab PO BEDTIME valsartan 40 mg tablet 1 tab PO DAILY Discontinued ibuprofen 200 mg Tablet 400 mg PO Q6H PRN (Reason: Pain) Discharge Orders: Discharge Order (Routine); Ordered 08/01/22 Ordered By: Jagruti Mccoy Diet: Advance to usual diet Activity on Discharge: As tolerated Stand Alone Forms: Patient Portal Discharge page Care Plan Goals: resolution of GI issues Health Concerns: coffee-ground emesis, partial small bowel obstruction -> both resolved Plan of Treatment: resume diet as tolerated follow up with GI in 2 weeks follow up with Wound Care as previously scheduled Assessment: See Discharge Summary.
--- NOTE | 2022-08-01 10:05 | W.MHC.F2F ---
Service Date Service Date: 08/01/22 Encounter Date of encounter: 08/01/22 Reasons for Services Signs and symptoms assessed: wound care Reason for nursing home: wound care and other (home health aide) Reason for physical therapy: home safety and mobility, therapeutic exercises, gait/transfer training, assess need for DME, ADL training and energy conservation Homebound: Leaving the home is medically contraindicated at this time without the asist of a device and/or another person due th the listed conditions above and below. Reason homebound: other Certification: Based on the above findings, I certify that this patient is confined to the home and needs intermittent nursing home care, physical therapy and/or speech therapy, or continues to need occupational therapy. The patient is under my care, and I have initiated the establishment of the plan of care. The patient will be followed by a physician who will periodically review the plan of care.
--- NOTE | 2022-08-01 10:07 | MHC.CM.PN ---
Patient has been medically cleared for dc to home today with services. A referral was made to [facility], who has been made aware of today's dc. Patient will dc to home today at 12:30 PM via [facility](LE wounds & Contact Precautions). Exit IMM addressed with Patient at bedside and original has been given to Patient and a copy has been placed on the chart.CM spoke with Patient's ROOMMATE/Opal @ [phone] and reviewed the dc plan with her.
--- NOTE | 2022-08-01 14:37 | PM.GIPN ---
Subjective Subjective Date of Service: 08/01/22 Interval History: Pt seen and evaluated at bedside. Reports no further abd pain, N,V. Awaiting discharge today. Critical Care Time (minutes): 0 Physical Exam Vital Signs: Vital Signs: Last Vital Signs Temp 98 F 08/01/22 07:27 Pulse 75 08/01/22 08:47 Resp 20 08/01/22 07:27 BP 121/58 L 08/01/22 08:47 Pulse Ox 97 08/01/22 08:47 O2 Del Method 08/01/22 07:27 FiO2 98 07/30/22 18:59 BMI result Body Mass Index 28.6 Gen appear: NAD Abd: soft, nontender, nondistended Objective Data Labs CBC & Chem 7: 08/01/22 06:40 08/01/22 06:40 Labs: Laboratory Results - last 24 hr 08/01/22 08/01/22 06:40 06:40 WBC 4.6 L RBC 3.14 L Hgb 8.5 L Hct 26.9 L MCV 85.7 MCH 27.1 MCHC 31.6 RDW 16.6 H Plt Count 177 MPV 10.4 Absolute Nucleated RBC 0.000 Nucleated RBC % (auto) 0.0 Sodium 142 Potassium 3.7 Chloride 108 Carbon Dioxide 22 Anion Gap 16 BUN 17 H Creatinine 1.27 Estim Creat Clear Calc 50.8 Estimated GFR 42 Random Glucose 112 Calcium 8.0 L Procedures Date of Service Date of Service: 08/01/22 Progress Note: A&P Assessment and plan (1) Partial small bowel obstruction: Status: Resolved Assessment and Plan: Likely was secondary to adhesive disease. Resolved with conservative measures. (2) Acute on chronic anemia: Status: Acute Assessment and Plan: Discussed with the patient that a colonoscopy is recommended to complete work up. Ceci with recent worsening of anemia as well as positive cologuard. She is agreeable to pursue this as outpatient. Will have our office call her to schedule this. Outpatient GI follow up will also be set up. Time Spent With Patient Time: Total time spent is greater than 50% in coordination of care (as documented) at patient's floor/unit and/or counseling patient: Quality Stroke Does the patient have a stroke diagnosis?: No VTE Prior VTE?: No VTE Risk Level:: Medical - moderate - high VTE Device Contraindication: N/A - Device Ordered VTE Drug Contraindication: Treatment Not Indicated
--- NOTE | 2022-08-01 14:59 | MHC.CM.PN ---
Per NA Liaison in [facility], [facility] is booking out 2-3 days; CM checked with MD who has indicated that this is acceptable. CM relayed this message to [facility] via [facility].
--- NOTE | 2022-08-02 09:17 | MHC.CM.PN ---
CM received a message that Patient's Roommate/Opal @ [phone] called and is wondering when PT will start. CM reached out to NA, via [facility] and requested that HV contact Patient to discuss schedule of when Disciplines can be expected to arrive.
== END 2022-08-01 13:45 | disposition home health service (06) | DRG 327 ==
LOC: HO.ED 21:15 → HO.EDOVER 21:23 → HO.IMC 07-29 15:26
PROVIDERS: Hospitalist; Internal Medicine; Nurse Practitioner Family; Admitting Provider Student in an Organized Health Care Education/Training Program; Emergency Provider Emergency Medicine Emergency Medical Services; PCP Family Medicine; Visit Provider Family Medicine
PROC: 0D968ZZ Drainage of Stomach, Via Natural or Artificial Opening Endoscopic (ICD-10-PCS; CPT 43266; principal; 2022-07-29 12:00)
DX: K29.51 Unspecified chronic gastritis with bleeding (principal); D62 Acute posthemorrhagic anemia; K56.7 Ileus, unspecified; N17.9 Acute kidney failure, unspecified; L12.0 Bullous pemphigoid; K56.41 Fecal impaction; I48.91 Unspecified atrial fibrillation; E03.9 Hypothyroidism, unspecified; E78.2 Mixed hyperlipidemia; Z20.822 Contact with and (suspected) exposure to COVID-19; Z79.890 Hormone replacement therapy; Z79.899 Other long term (current) drug therapy
CPT/HCPCS: 0241U; 36415; 71045; 73630; 74018; 74176; 80048; 80076; 82272; 83540; 83690; 83735; 84484; 85025; 85027; 85610; 85730; 86850; 86900; 86901; 86923; 88305; 93005; 97116; 97162; 99284; J0171; J2765; J3010; P9016

== ENCOUNTER 2022-09-17 10:14 | Day surgery (SDC) | payer MEDICARE, SELFPAY ==
--- NOTE | 2022-09-14 10:36 | P.CONAN_ITS ---
Documented by User: Griselda Power NP 09/14/22 10:39 HPI - Anesthesia Eval Consult details Narrative: 66yo F for Colonoscopy Afib, not anticoagulated 06/2022 [facility] [place] admit with coffee ground emesis, partial SBO s/p EGD with Stent placement 07/30/22 with MAC PMFSH Active Problems Active Problems: All Active Problems (Updated 08/09/22 @ 00:05 by Background Daemon) Acute on chronic anemia (Acute) Acute kidney injury (Acute) Gastritis (Acute) Coffee ground emesis (Acute) Past Medical History Medical History (Updated 08/09/22 @ 00:05 by Background Daemon) Afib Bilateral cataracts Bullous pemphigoid Essential hypertension Hyperlipemia, mixed 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 (nsaid) MRSA (methicillin resistant Staphylococcus aureus) Pacemaker complications Positive colorectal cancer screening using Cologuard test Family History Family history of problems with anesthesia: No Surgical History Surgical History (Updated 07/29/22 @ 12:21 by Anna Cantrell RN) History of surgery on lower extremity History of Problems with Anesthesia: No Social History Social History Household Members: Other Household Members Other:: roomate Housing: Apartment Do you presently have visiting nurse or other home services: No (but interested in having a HAND COOPER HELPER) Patient Tobacco Use Status: Never used Tobacco Advance Directives: No Advance Directives Information Provided: Yes service: No Meds Allergies Allergy/AdvReac Type Severity Reaction Status Date / Time No Known Allergies Allergy Verified 07/28/22 17:39 Home Medications Medication Instructions Recorded Confirmed Last Taken Type amiodarone 200 mg tablet 0.5 tab PO DAILY 07/28/22 07/29/22 07/28/22 History carvedilol 12.5 mg tablet 1 tab PO DAILY 07/28/22 07/29/22 07/28/22 History carvedilol 12.5 mg tablet 2 tab PO BEDTIME 07/28/22 07/29/22 07/27/22 History doxycycline monohydrate 100 mg 1 cap PO BID 07/28/22 07/29/22 07/28/22 History capsule levothyroxine 75 mcg tablet 1 tab PO DAILY 07/28/22 07/29/22 07/28/22 History simvastatin 20 mg tablet 1 tab PO BEDTIME 07/28/22 07/29/22 07/27/22 History valsartan 40 mg tablet 1 tab PO DAILY 07/28/22 07/29/22 07/28/22 History Exam Exam Date and Time: September 14, 2022 1036 Pertinent Lab Results Pertinent Lab Results: Laboratory Tests 08/01/22 08/01/22 06:40 06:40 WBC 4.6 L Hgb 8.5 L Hct 26.9 L Plt Count 177 Sodium 142 Potassium 3.7 Chloride 108 Carbon Dioxide 22 BUN 17 H Creatinine 1.27 Narrative Narrative: EKG 06/2022 Vent. Rate : 089 BPM ? ? Atrial Rate : 089 BPM ?? P-R Int : 178 ms? QRS Dur : 126 ms ? ? QT Int : 402 ms ? ? ? P-R-T Axes : 044 -09 118 degrees ?? QTc Int : 489 ms ? 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 (nsaid) MRSA (methicillin resistant Staphylococcus aureus) Pacemaker complications Positive colorectal cancer screening using Cologuard test Surgical History Surgical History (Updated 07/29/22 @ 12:21 by Anna Cantrell RN) History of surgery on lower extremity Social History Social History Household Members: Other Household Members Other:: roomate Housing: Apartment Do you presently have visiting nurse or other home services: No (but interested in having a HAND COOPER HELPER) Patient Tobacco Use Status: Never used Tobacco Advance Directives: No Advance Directives Information Provided: Yes service: No Meds Allergies Allergy/AdvReac Type Severity Reaction Status Date / Time No Known Allergies Allergy Verified 07/28/22 17:39 Home Medications Medication Instructions Recorded Confirmed Last Taken Type amiodarone 200 mg tablet 0.5 tab PO DAILY 07/28/22 07/29/22 07/28/22 History carvedilol 12.5 mg tablet 1 tab PO DAILY 07/28/22 07/29/22 07/28/22 History carvedilol 12.5 mg tablet 2 tab PO BEDTIME 07/28/22 07/29/22 07/27/22 History doxycycline monohydrate 100 mg 1 cap PO BID 07/28/22 07/29/22 07/28/22 History capsule levothyroxine 75 mcg tablet 1 tab PO DAILY 07/28/22 07/29/22 07/28/22 History simvastatin 20 mg tablet 1 tab PO BEDTIME 07/28/22 07/29/22 07/27/22 History valsartan 40 mg tablet 1 tab PO DAILY 07/28/22 07/29/22 07/28/22 History Exam Airway Mallampati Class: II (Caps/ perm bridge laterally) TM Dist: >3cm Neck ROM: Full Heart: rrr Lungs: cta Assessment and Plan Assessment Anesthesia Assessment: Anesthesia Plan Discussed and Chart Reviewed Final Anesthetic Review NPO: Yes ASA Class: II Final Preanesthetic Review: No Changes in Pt Med Stat, Meds/Allgs Chart Reviewed and Consent Obtained/Reviewed Patient Risk: Intermediate Procedure Risk: Intermediate Anesthetic Plan Anesthetic Plan: MAC: Disposition: Standard PACU
[2022-09-17 10:51] VITALS: BP 147/85; PULSE 91; RESP 16; TEMP 36.3; O2SAT 99; BMI 27.0
[2022-09-17 11:04] LABS: Hemoglobin 10.2 g/dl (12.0-16.0); Mean Corpuscular HGB Conc 30.9 g/dl (31.0-35.0); Mean Corpuscular Hemoglobin 26.3 pg (27.0-33.0); Mean Corpuscular Volume 85.1 fL (80.0-98.0); Platelet Count 205 X10*3/uL (160-400); Red Blood Count 3.88 X10*6/uL (4.20-5.50); Red Cell Distribution Width 17.2 % (11.0-16.0); White Blood Count 5.6 X10*3/uL (4.8-10.8)
[2022-09-17 11:08] VITALS: BP 147/85; PULSE 83; RESP 16; TEMP 36.3; O2SAT 99; BMI 27.0
--- NOTE | 2022-09-17 11:42 | MHC.SHP ---
Pre-Procedural Eval Section A Date of Service: 09/17/22 Section B Chief Complaint: Anemia, Other fecal abnormalities Details of Present Illness: 66 y.o F with PMH of bullous pemphigoid, A fib, hypertension, and anemia who is here for colonoscopy for anemia as well as a recent positive Cologuard. EGD (06/2022): grossly normal [GEJ nodule was benign on path without any metaplastic or dysplastic changes] Present Medications: see Short Stay Collaborative assessment Medical History: Significant History (as above ) History of Previous Operations: No relevant previous surgery Allergies: Allergies Allergy/AdvReac Type Severity Reaction Status Date / Time No Known Allergies Allergy Verified 07/28/22 17:39 Review of Systems Review of Systems Comment: 10 point ROS negative except as above Exam Exam Comment: Gen appear: No acute distress, well nourished HEENT: no icterus Chest: No overt resp distress Abd: soft, nontender, nondistended Psych: Stable affect, answering questions appropriately Neuro: A/Ox3 noted to move all extremities spontaneously Ext: no peripheral edema Plan Diagnosis/Plan: Unchanged I have reviewed the history and physical and performed a pertinent physical examination on my patient. No changes have occurred unless specified. Time Spent With Patient Time: Total time managing care of this patient today ____ minutes.
[2022-09-17 13:11] VITALS: BP 114/42; PULSE 72; RESP 16; TEMP 36.8; O2SAT 98
--- NOTE | 2022-09-17 13:12 | P.OP_ITS ---
Operative Note Operative Note Date of Service: 09/17/22 Narrative: Procedure: Colonoscopy Indication: Anemia + FIT test Endoscopist: Melinda Gambino MD Anesthesia Provider: Briseida Robertson CRNA Anesthesia type: MAC Instrument: Olympus [id number]-H190L Consent: Indication, risks vs benefits, and alternatives were discussed with the patient who gave written informed consent to proceed. EKG, pulse, pulse oximetry and blood pressure were monitored throughout the procedure. Please see anesthesia flowsheet. Procedure: The patient was brought to the procedure room and placed in the left lateral decubitus position. IV medications were administered by the anesthesia provider in attendance. A digital rectal exam was performed which was normal. The colonoscope was then inserted through the anus and advanced through the colon to the cecum at 80 cm. Mucosa was carefully examined under high definition white light as the instrument was slowly withdrawn in a retrograde panoramic fashion. Retroflexion was performed in ascending colon and rectum. The procedure was somewhat difficult due to fixed sigmoid colon. There were no immediate obvious complications. The quality of the prep was BBPS: 3+2+3 = adequate Withdrawal time 65 minutes. Limitations: No limitations. Findings: Mucosa: Normal to cecum. Protruding lesions: * 3 sessile polyp of size 4-8 mm in cecum. Cold snare polypectomy was performed. The polyps were completely removed and retrieved. * 1 sessile polyp of size 6 mm in ascending colon. Cold snare polypectomy was performed. The polyp was completely removed and retrieved. * 1 pedunculated polyp of size 30 mm in sigmoid colon at 35 cm. Piecemeal hot snare snare polypectomy was performed. After the first heat application the colon became extremely spastic and could not be insufflated optimally. Glucagon 0.5mg x 2 was given and eventually the polypectomy was completed. 1 cc of endomark was placed at 30 cm. * Medium internal hemorrhoids without stigmata of recent bleeding. Excavated lesions: * Medium diverticulosis of sigmoid colon. Impression: 1. Normal colon mucosa 2. Total of 5 polyps removed from cecum, ascending, and sigmoid colon. 3. Severe sigmoid diverticulosis 3. Internal hemorrhoids Recommendations: - Follow path results. - Will be set up for flexible sigmoidoscopy in 3-6 months for follow up of piecemeal polypectomy.
[2022-09-17 13:27] VITALS: BP 135/52; PULSE 65; RESP 14; TEMP 36.4; O2SAT 98
== END 2022-09-17 14:25 | disposition home or self-care (01) ==
PROVIDERS: Nurse Practitioner; PCP Family Medicine; Visit Provider Internal Medicine
PROC: 0DJD8ZZ Inspection of Lower Intestinal Tract, Via Natural or Artificial Opening Endoscopic (ICD-10-PCS; CPT 45378; principal; 2022-09-17 12:00)
DX: D64.9 Anemia, unspecified (principal); R19.5 Other fecal abnormalities; D12.0 Benign neoplasm of cecum; D12.2 Benign neoplasm of ascending colon; D12.5 Benign neoplasm of sigmoid colon; K57.30 Diverticulosis of large intestine without perforation or abscess without bleeding; K64.8 Other hemorrhoids; I48.91 Unspecified atrial fibrillation; I10 Essential (primary) hypertension; Z96.1 Presence of intraocular lens; E78.2 Mixed hyperlipidemia; Z86.14 Personal history of Methicillin resistant Staphylococcus aureus infection; E03.9 Hypothyroidism, unspecified; Z79.1 Long term (current) use of non-steroidal anti-inflammatories (NSAID); Z79.899 Other long term (current) drug therapy
CPT/HCPCS: 45385; 45381; 36415; 85027; 88305; J1610

== ENCOUNTER 2023-02-09 19:25 | Emergency (ER) | payer MEDICARE, SELFPAY ==
--- NOTE | ~2023-02-09 | CT_ITS ---
EXAMINATION: CT ABDOMEN AND PELVIS WITHOUT CONTRAST CLINICAL INFORMATION: Abdominal pain COMPARISON: CT abdomen and pelvis of 07/29/2022 TECHNIQUE: Multidetector volumetric imaging was performed from the superior aspect of the liver through the pubic symphysis. Sagittal and coronal reformatted images were obtained on the technologist's workstation. This CT examination was performed using dose optimization techniques as appropriate, variously including the following: *Automated exposure control *Adjustment of mA and/or kV according to patient size (this includes techniques or standardized protocols for targeted exams where dose is matched to indication/reason for exam; i.e. extremities or head) *Use of iterative reconstruction technique DLP: 550 mGy-cm FINDINGS: LUNG BASES: The visualized lung bases are unremarkable. Trace pericardial fluid. LIVER, GALLBLADDER, AND BILIARY TREE: The liver is normal in size, shape, and attenuation. No focal hepatic lesion or biliary ductal dilatation is present. The gallbladder is physiologically distended. A few tiny layering calcified gallstones are noted. No evidence of gallbladder wall thickening or pericholecystic inflammatory changes. No radiopaque filling defect is noted in the common bile duct. PANCREAS: Unremarkable. SPLEEN: Unremarkable. ADRENAL GLANDS: Unremarkable. KIDNEYS AND URETERS: Moderate to severe atrophy of the left kidney is a stable finding. Partially exophytic hypodense lesion from the left upper to mid kidney laterally measuring 1.5 cm represents a cyst by CT Hounsfield units criteria and no further imaging follow-up of this finding is warranted. No evidence of radiopaque urinary tract calculi, hydroureteronephrosis or perinephric stranding. A 0.6 cm hyperdense focus is noted in the right mid kidney laterally (series 3 image 24). BLADDER: Underdistended and therefore not optimally evaluated. No radiopaque calculi are noted in the bladder. GASTROINTESTINAL TRACT: The stomach is distended with air and fluid. Borderline dilatation of the multiple small bowel loops which are fluid-filled. No no sonographic transition zone is noted. The distal small bowel loops are also fluid-filled however are relatively narrow in caliber. Mild thickening of the wall of few of the small bowel loops in the left mid and lower abdomen is noted. The colon is normal in caliber. Air and fecal material is noted in the colon. No evidence of colonic wall thickening or pericolonic fat stranding. Large stool burden is noted in the colon. An appendix is normal. No evidence of intestinal pneumatosis. PERITONEAL CAVITY: No evidence of free intraperitoneal air. Trace fluid in the pelvis. ABDOMINAL WALL: No significant hernia is appreciated. LYMPH NODES: No abnormal lymph nodes are demonstrated in the axilla. VASCULAR: The aortoiliac vessels are normal in caliber. Mild calcific atherosclerosis of the aortoiliac vessels. PELVIC VISCERA: Enlarged globular uterus is again noted reflecting underlying myomatous changes. No adnexal mass. OSSEOUS STRUCTURES: No evidence of acute or suspicious osseous lesions. Diffuse osteopenia. Moderate compression fracture at T12 and mild superior endplate compression at L5 are stable findings. CT/CT abdomen pelvis wo IV con IMPRESSION: Borderline nonspecific dilatation of the multiple small bowel loops without evidence of transition zone. Similar findings are seen on the previous CT. Findings likely represent ileus. Additionally there appears to be mild thickening of few of the small bowel loops in the left mid to lower abdomen which can be seen in the setting of enteritis. Large stool burden in the colon. Trace free fluid in the pelvis is now nonspecific. Fleischner guidelines were followed.
[2023-02-09 19:35] VITALS: BP 113/71; PULSE 115; RESP 20; TEMP 36.6; O2SAT 97; BMI 27.0
--- NOTE | 2023-02-09 19:39 | ED_ITS ---
HPI - General Adult General Chief complaint: Abdominal Pain Stated complaint: abd pain/vomiting/fever/chills Time Seen by Provider: 02/09/23 20:45 Source: patient Mode of arrival: ambulatory Limitations: no limitations History of Present Illness HPI narrative: Patient history of diverticulitis noticed pain in mid abdomen reaching to epigastric area with nausea vomiting for last 3 days after eating corn, vomited about 3 times today and had 1 loose bowel movement did not eat or drink much today no fever had some chills no urinary symptoms Related Data Home Medications Medication Instructions Recorded Confirmed amiodarone 200 mg tablet 0.5 tab PO DAILY 07/28/22 07/29/22 carvedilol 12.5 mg tablet 1 tab PO DAILY 07/28/22 07/29/22 carvedilol 12.5 mg tablet 2 tab PO BEDTIME 07/28/22 07/29/22 doxycycline monohydrate 100 mg 1 cap PO BID 07/28/22 07/29/22 capsule levothyroxine 75 mcg tablet 1 tab PO DAILY 07/28/22 07/29/22 simvastatin 20 mg tablet 1 tab PO BEDTIME 07/28/22 07/29/22 valsartan 40 mg tablet 1 tab PO DAILY 07/28/22 07/29/22 Previous Rx's Medication Instructions Recorded ondansetron 4 mg disintegrating 4 mg PO Q6-8H PRN nausea and 02/09/23 tablet vomiting #7 tabs Allergies Allergy/AdvReac Type Severity Reaction Status Date / Time No Known Allergies Allergy Verified 02/09/23 19:40 Review of Systems Review of Systems: Yes all other systems are reviewed and are negative PMFSH Past Medical History Medical History Afib Bilateral cataracts Bullous pemphigoid Essential hypertension Hyperlipemia, 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) MRSA (methicillin resistant Staphylococcus aureus) Pacemaker complications Positive colorectal cancer screening using Cologuard test Surgical History History of surgery on lower extremity Social History Social History Household Members: Other Household Members Other:: roomate Housing: Apartment Do you presently have visiting nurse or other home services: No (but interested in having a FIRE INSPECTOR) Alcohol intake: never Patient Tobacco Use Status: Never used Tobacco Smoked in Last 30 Days: No Use of substances other than those prescribed or required for medical reasons: No Advance Directives: No Advance Directives Information Provided: No service: No Physical Exam ED Vital Signs: Vital Signs - 24 hr 02/09/23 19:35 Temperature 98 F Pulse Rate 115 H Respiratory Rate 20 Blood Pressure 113/71 Pulse Oximetry 97 Oxygen Delivery Method Room Air BMI result Body Mass Index 27.0 Appearance: Alert. Oriented X3. No acute distress. Eyes: No pallor or icterus ENT: Pharynx normal. Oral Mucosa moist Neck: Normal inspection. Neck supple. CVS: Normal heart rate and rhythm. Pulses normal. Respiratory: No respiratory distress. Equal air entry bilateral, no wheezing/rales/rhonchi Abdomen: Soft mild tenderness mid abdomen no rebound tenderness or guarding Bowel sounds are present, no mass palpable, no CVA tenderness Skin: Skin warm and dry. Normal skin color. Normal skin turgor. Extremities: No lower extremity edema. No calf tenderness Neuro: Oriented X 3. No motor deficit. Course Course Course Narrative: RME- 67-year-old female presents for evaluation of abdominal pain, vomiting. Symptoms started 3 days ago per patient history of diverticulitis was admitted last year for this. I received an expect call from Dr. Cornelius, GI would like patient to have labs and a CT scan the abdomen pelvis. These were ordered Medical Decision Making Medical Decision Making MDM Narrative: Patient has stable labs with gastroenteritis had 2 loose bowels in the ER feeling much better now taking p.o. fluids will discharge patient home Lab Data [facility] Lab Attestation statement: I reviewed the patient's lab results. 02/09/23 19:49 02/09/23 19:49 Labs: Lab Results 02/09/23 02/09/23 02/09/23 Range/Units 19:49 19:49 23:37 WBC 7.2 (4.8-10.8) X10*3/uL RBC 4.44 (4.20-5.50) X10*6/uL Hgb 12.0 (12.0-16.0) g/dl Hct 36.7 L (37.0-47.0) % MCV 82.7 (80.0-98.0) fL MCH 27.0 (27.0-33.0) pg MCHC 32.7 (31.0-35.0) g/dl RDW 16.8 H (11.0-16.0) % Plt Count 262 D (160-400) X10*3/uL MPV 10.2 (9.4-12.3) fL Immature Gran % (Auto) 0.3 (0.0-0.4) % Neut % (Auto) 74.2 H (45-73) % Lymph % (Auto) 17.7 L (20-40) % Churchill % (Auto) 6.0 (2-11) % Eos % (Auto) 1.4 (0-4) % Baso % (Auto) 0.4 (0-2) % Lymph # (Auto) 1.3 (1.2-4.9) X10*3/uL Churchill # (Auto) 0.4 (0.1-1.2) X10*3/uL Eos # (Auto) 0.1 (0.0-0.4) X10*3/uL Baso # (Auto) 0.0 (0.0-0.2) X10*3/uL Abs Immat Gran (auto) 0.02 (0.00-0.03) X10*3/uL Absolute Neuts (auto) 5.4 (2.0-8.3) x10*3/uL Absolute Nucleated RBC 0.000 (0.0-0.012) X10*3/uL Nucleated RBC % (auto) 0.0 (0.0-0.2) /100WBC Sodium 143 (135-145) mmol/L Potassium 4.4 (3.3-5.1) mmol/L Chloride 108 (96-108) mmol/L Carbon Dioxide 22 (22-29) mmol/L Anion Gap 17 (12-20) BUN 25 H (9-16) mg/dL Creatinine 1.78 H (0.5-1.4) mg/dL Estim Creat Clear Calc 34.8 Estimated GFR 28 Random Glucose 116 H (60-115) mg/dL Calcium 9.7 D (8.4-10.2) mg/dL Total Bilirubin 1.1 H (0.0-1.0) mg/dL AST 11 (5-31) U/L ALT 6 (0-31) U/L Alkaline Phosphatase 72 (39-117) U/L Total Protein 7.4 (6.5-8.0) g/dL Albumin 4.0 (3.5-5.0) g/dL Lipase 21 (8-78) U/L Urine Color Dark Yellow Urine Appearance Cloudy Urine pH 5.0 (5.0-9.0) Ur Specific [place]well 1.025 (1.005-1.025) Urine Protein 30 (1+) H (Neg-Trace) mg/dL Urine Glucose (UA) Negative (Negative) mg/dL Urine Ketones Trace (Negative) mg/dL Urine Blood Negative (Negative) Urine Nitrite Negative (Negative) Ur Leukocyte Esterase Small (1+) H (Negative) Urine RBC 6-10 H (0-2) /HPF Urine WBC 0-5 (0-5) /HPF Ur Squamous Epith Cells 6-10 (0-2) /HPF Urine Bacteria 1+ (None Seen) Hyaline Casts 11-20 (0-2) /LPF Discharge Plan Discharge Clinical Impression: Gastroenteritis Patient Disposition: Home, Self-Care Instructions: Gastroenteritis (ED) Additional Instructions: Drink plenty of fluids Med for nausea as prescribed Follow-up with your PCP if not better Prescriptions: New ondansetron 4 mg tablet,disintegrating 4 mg PO Q6-8H PRN (Reason: nausea and vomiting) Qty: 7 0RF No Action carvedilol 12.5 mg tablet 1 tab PO DAILY carvedilol 12.5 mg tablet 2 tab PO BEDTIME amiodarone 200 mg tablet 0.5 tab PO DAILY levothyroxine 75 mcg tablet 1 tab PO DAILY doxycycline monohydrate 100 mg capsule 1 cap PO BID simvastatin 20 mg tablet 1 tab PO BEDTIME valsartan 40 mg tablet 1 tab PO DAILY
[2023-02-09 19:54] LABS: MANUAL DIFF FLAG NO
[2023-02-09 19:55] LABS: Basophils Percent Auto 0.4 % (0-2); Eosinophils Absolute Auto 0.1 X10*3/uL (0.0-0.4); Eosinophils Percent Auto 1.4 % (0-4); Hematocrit 36.7 % (37.0-47.0); Imm Gran Abs Auto 0.02 X10*3/uL (0.00-0.03); Imm Gran Pct Auto 0.3 % (0.0-0.4); Lymphocytes Absolute Auto 1.3 X10*3/uL (1.2-4.9); Lymphocytes Percent Auto 17.7 % (20-40); Mean Corpuscular HGB Conc 32.7 g/dl (31.0-35.0); Mean Corpuscular Volume 82.7 fL (80.0-98.0); Mean Platelet Volume 10.2 fL (9.4-12.3); Monocytes Absolute Auto 0.4 X10*3/uL (0.1-1.2); Neutrophils Absolute Auto 5.4 x10*3/uL (2.0-8.3); Neutrophils Percent Auto 74.2 % (45-73); Platelet Count 262 X10*3/uL (160-400); Red Blood Count 4.44 X10*6/uL (4.20-5.50); Red Cell Distribution Width 16.8 % (11.0-16.0); White Blood Count 7.2 X10*3/uL (4.8-10.8)
[2023-02-09 20:11] LABS: Alanine Aminotransferase 6 U/L (0-31); Alkaline Phosphatase 72 U/L (39-117); Anion Gap 17 (12-20); Aspartate Amino Transferase 11 U/L (5-31); Bilirubin Total 1.1 mg/dL (0.0-1.0); Blood Urea Nitrogen 25 mg/dL (9-16); Calcium 9.7 mg/dL (8.4-10.2); Carbon Dioxide 22 mmol/L (22-29); Chloride 108 mmol/L (96-108); Creatinine Clr Calc Pharmacy 34.8; Estimated Glomerular Filt Rate 28; Glucose Random 116 mg/dL (60-115); Lipase 21 U/L (8-78); Potassium 4.4 mmol/L (3.3-5.1); Sodium 143 mmol/L (135-145); Total Protein 7.4 g/dL (6.5-8.0)
[2023-02-09 23:43] LABS: Appearance Urine Cloudy; Color Urine Dark Yellow; Glucose Urine UA Negative (Negative); Leukocyte Esterase Urine Small (1+) (Negative); Nitrite Urine Negative (Negative); Specific Gravity - Urine 1.025 (1.005-1.025); UMIC TRIGGER UACC YES; Urine Blood Negative (Negative); Urine Ketones Trace mg/dL (Negative); Urine Protein 30 (1+) mg/dL (Neg-Trace)
[2023-02-09 23:50] LABS: Bacteria Urine 1+ (None Seen); UACC Culture Trigger YES; WBC Urine 0-5 /HPF (0-5)
== END 2023-02-10 00:23 | disposition home or self-care (01) ==
PROVIDERS: Physician Assistant; Emergency Provider Internal Medicine; PCP Family Medicine
DX: K52.9 Noninfective gastroenteritis and colitis, unspecified (principal); R11.2 Nausea with vomiting, unspecified; Z79.02 Long term (current) use of antithrombotics/antiplatelets; Z79.899 Other long term (current) drug therapy
CPT/HCPCS: 36415; 74176; 80053; 81001; 83690; 85025; 87086; 87088; 87186; 99284

== ENCOUNTER 2023-02-20 10:45 | Outpatient (REF) | payer MEDICARE, SELFPAY ==
[2023-02-20 12:43] LABS: Anion Gap 12 (12-20); Blood Urea Nitrogen 37 mg/dL (9-16); Carbon Dioxide 25 mmol/L (22-29); Chloride 107 mmol/L (96-108); Estimated Glomerular Filt Rate 34; Glucose Random 78 mg/dL (60-115); Potassium 3.5 mmol/L (3.3-5.1); Sodium 140 mmol/L (135-145)
== END 2023-02-20 10:46 | disposition home or self-care (01) ==
LOC: HO.LAB 10:45
PROVIDERS: Visit Provider Internal Medicine
DX: N17.9 Acute kidney failure, unspecified (principal)
CPT/HCPCS: 36415; 80048

== ENCOUNTER 2023-03-28 11:16 | Day surgery (SDC) | payer MEDICARE, SELFPAY ==
[2023-03-26 09:34] VITALS: BMI 26.3
--- NOTE | 2023-03-27 08:50 | HO.ANESPROP2 ---
Documented by User: Griselda Power NP 03/27/23 09:09 HPI - Anesthesia Eval Consult details Narrative: 67yo F for Sigmoidoscopy Flexible afib - no anticoag hx of pacer with removal d/t mrsa infection stable at 12/2022 Cardiology office visit Bullous pemphigoid stable on IVIG PMFSH Active Problems Active Problems: All Active Problems (Updated 03/26/23 @ 11:02 by Stephanie Mosquera, RN) Coffee ground emesis (Acute) Gastritis (Acute) Acute kidney injury (Acute) Acute on chronic anemia (Acute) Past Medical History Medical History (Updated 03/26/23 @ 11:02 by Stephanie Mosquera, DINORAH) Afib Bilateral cataracts Bullous pemphigoid Cardiomyopathy Essential hypertension History of diverticulitis Hx of gastroenteritis Hx of hepatitis Hyperlipemia, mixed Hypogammaglobulinemia 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 (nsaid) MRSA (methicillin resistant Staphylococcus aureus) Pacemaker complications Positive colorectal cancer screening using Cologuard test Family History Family history of problems with anesthesia: No Surgical History Surgical History (Updated 03/26/23 @ 11:03 by Stephanie Mosquera, DINORAH) History of cardiac radiofrequency ablation (RFA) History of esophagogastroduodenoscopy (EGD) History of surgery on lower extremity Hx of arthroscopy of left knee Hx of colonoscopy History of Problems with Anesthesia: No Social History Social History Household Members: Other Household Members Other:: roomate Housing: Apartment Are you a primary transitional care liaison to a significant other at home: No Do you presently have visiting nurse or other home services: No Alcohol intake: never Patient Tobacco Use Status: Never used Tobacco Use of substances other than those prescribed or required for medical reasons: No Are you DNR?: No Advance Directives: No Advance Directives Information Provided: Yes Advance Directives on File: No service: No Meds Allergies Allergy/AdvReac Type Severity Reaction Status Date / Time adhesive AdvReac rash, Verified 03/26/23 09:32 blisters, sensitive skin, especially with electrodes Home Medications Medication Instructions Recorded Confirmed Last Taken Type amiodarone 200 mg tablet 0.5 tab PO DAILY 07/28/22 03/26/23 07/28/22 History carvedilol 12.5 mg tablet 1 tab PO DAILY 07/28/22 03/26/23 07/28/22 History carvedilol 12.5 mg tablet 2 tab PO BEDTIME 07/28/22 03/26/23 07/27/22 History doxycycline monohydrate 100 mg 1 cap PO BID 07/28/22 03/26/23 07/28/22 History capsule levothyroxine 75 mcg tablet 1 tab PO DAILY 07/28/22 03/26/23 07/28/22 History simvastatin 20 mg tablet 1 tab PO BEDTIME 07/28/22 03/26/23 07/27/22 History valsartan 40 mg tablet 1 tab PO DAILY 07/28/22 03/26/23 07/28/22 History Exam Exam Date and Time: March 27, 2023 0850 Height,Weight and Vital Signs: Height 5 ft 9 in Weight 80.739 kg Pertinent Lab Results Pertinent Lab Results: Laboratory Tests 02/09/23 02/20/23 19:49 11:05 WBC 7.2 Hgb 12.0 Hct 36.7 L Plt Count 262 D Sodium 140 Potassium 3.5 D Chloride 107 Carbon Dioxide 25 BUN 37 H Creatinine 1.53 H Narrative Narrative: EKG 06/2022 Vent. Rate : 089 BPM ? ? Atrial Rate : 089 BPM ?? P-R Int : 178 ms? QRS Dur : 126 ms ? ? QT Int : 402 ms ? ? ? P-R-T Axes : 044 -09 118 degrees ?? QTc Int : 489 ms ? Normal sinus rhythm Left bundle branch block Abnormal ECG No previous ECGs available ECHO 2021 LV is mildly dilated Borderline concentric LVH EF 35% Thinning and severe hypokinesis of the basal septum. Mild to moderate hypokinesis of the other basal portions of the LV Moderate septal dyssynchrony Borderline RV enlargement RV systolic function is borderline reduced. LA is moderately dilated Mild pulm htn Mild valvular aortic stenosis No significant change from 07/2021 Assessment and Plan Assessment Anesthesia Assessment: Chart Reviewed Final Anesthetic Review Family History of Problems with Anesthesia: No History of Problems with Anesthesia: No Documented by User: Lucia Taylor MD 03/28/23 14:00 [facility] Past Medical History Medical History (Updated 03/26/23 @ 11:02 by Stephanie Mosquera, RN) Afib Bilateral cataracts Bullous pemphigoid Cardiomyopathy Essential hypertension History of diverticulitis Hx of gastroenteritis Hx of hepatitis Hyperlipemia, mixed Hypogammaglobulinemia 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 (nsaid) MRSA (methicillin resistant Staphylococcus aureus) Pacemaker complications Positive colorectal cancer screening using Cologuard test Surgical History Surgical History (Updated 03/26/23 @ 11:03 by Stephanie Mosquera, DINORAH) History of cardiac radiofrequency ablation (RFA) History of esophagogastroduodenoscopy (EGD) History of surgery on lower extremity Hx of arthroscopy of left knee Hx of colonoscopy Social History Social History Household Members: Other Household Members Other:: roomate Housing: Apartment Are you a primary transitional care liaison to a significant other at home: No Do you presently have visiting nurse or other home services: No Alcohol intake: never Patient Tobacco Use Status: Never used Tobacco Use of substances other than those prescribed or required for medical reasons: No Are you DNR?: No Advance Directives: No Advance Directives Information Provided: Yes Advance Directives on File: No service: No Meds Allergies Allergy/AdvReac Type Severity Reaction Status Date / Time adhesive AdvReac rash, Verified 03/26/23 09:32 blisters, sensitive skin, especially with electrodes Home Medications Medication Instructions Recorded Confirmed Last Taken Type amiodarone 200 mg tablet 0.5 tab PO DAILY 07/28/22 03/26/23 07/28/22 History carvedilol 12.5 mg tablet 1 tab PO DAILY 07/28/22 03/26/23 07/28/22 History carvedilol 12.5 mg tablet 2 tab PO BEDTIME 07/28/22 03/26/23 07/27/22 History doxycycline monohydrate 100 mg 1 cap PO BID 07/28/22 03/26/23 07/28/22 History capsule levothyroxine 75 mcg tablet 1 tab PO DAILY 07/28/22 03/26/23 07/28/22 History simvastatin 20 mg tablet 1 tab PO BEDTIME 07/28/22 03/26/23 07/27/22 History valsartan 40 mg tablet 1 tab PO DAILY 07/28/22 03/26/23 07/28/22 History Exam Airway Mallampati Class: I TM Dist: >3cm Neck ROM: Full Loose/Missing/Broken Teeth: No Heart: rr Lungs: cta Assessment and Plan Assessment Anesthesia Assessment: Anesthesia Plan Discussed Final Anesthetic Review NPO: Yes ASA Class: III Final Preanesthetic Review: No Changes in Pt Med Stat, Meds/Allgs Chart Reviewed, Consent Obtained/Reviewed and Anes Risks/Benef Reviewed Patient Risk: Low Procedure Risk: Low Anesthetic Plan Anesthetic Plan: MAC: Disposition: Standard PACU
[2023-03-28 13:27] VITALS: BMI 26.3
--- NOTE | 2023-03-28 14:54 | P.OP_ITS ---
Operative Note Operative Note Date of Service: 03/28/23 Narrative: Procedure: Colonoscopy Indication: Personal hx of polyps, piecemeal polypectomy Endoscopist: Melinda Gambino MD Anesthesia Provider: Briseida Sánchez CRNA Anesthesia type: MAC Instrument: Olympus [id number]-[id number] Consent: Indication, risks vs benefits, and alternatives were discussed with the patient who gave written informed consent to proceed. EKG, pulse, pulse oximetry and blood pressure were monitored throughout the procedure. Please see anesthesia flowsheet. Procedure: The patient was brought to the procedure room and placed in the left lateral decubitus position. IV medications were administered by the anesthesia provider in attendance. A digital rectal exam was performed which was normal. The gastroscope was then inserted through the anus and advanced through the colon to the transverse colon. Limitations: Poor prep. Findings: Mucosa: Solid stool was present throughout the sigmoid and descending colon limiting visualisation. Impression: 1. Poor prep Recommendations: * Repeat procedure will be set up in the next few weeks, with instructions to have clear liquid diet the day before and to take x 2 enema at home as well before coming in.
--- NOTE | 2023-03-28 15:27 | MHC.SHP ---
Pre-Procedural Eval Section A Date of Service: 03/28/23 Section B Chief Complaint: Polyp of colon Details of Present Illness: Pt had large tubulovillous adenoma of sigmoid colon removed piecemeal 08/2022. Here for follow up endoscopy. PMH: Afib Essential hypertension Hyperlipemia, mixed Hypothyroid Present Medications: see Short Stay Collaborative assessment Allergies: Allergies Allergy/AdvReac Type Severity Reaction Status Date / Time adhesive AdvReac rash, Verified 03/26/23 09:32 blisters, sensitive skin, especially with electrodes Review of Systems Review of Systems Comment: Ten point ROS negative Exam Exam Comment: Gen appear: No acute distress HEENT: no icterus Chest: No overt resp distress Abd: soft, nontender, nondistended Psych: Stable affect, answering questions appropriately Neuro: A/Ox3 noted to move all extremities spontaneously Ext: no peripheral edema Plan Diagnosis/Plan: Unchanged I have reviewed the history and physical and performed a pertinent physical examination on my patient. No changes have occurred unless specified. Time Spent With Patient Time: Total time managing care of this patient today ____ minutes.
[2023-03-28 15:34] VITALS: BP 107/57; PULSE 76; RESP 15; TEMP 36.7; O2SAT 100
[2023-03-28 15:56] VITALS: BP 148/72; PULSE 68; RESP 17; TEMP 36.7; O2SAT 97
== END 2023-03-28 16:00 | disposition home or self-care (01) ==
PROVIDERS: PCP Family Medicine; Visit Provider Internal Medicine
PROC: 0DJD8ZZ Inspection of Lower Intestinal Tract, Via Natural or Artificial Opening Endoscopic (ICD-10-PCS; CPT 45330; principal; 2023-03-28 14:30)
DX: D12.5 Benign neoplasm of sigmoid colon (principal); D64.9 Anemia, unspecified; I10 Essential (primary) hypertension; Z53.8 Procedure and treatment not carried out for other reasons
CPT/HCPCS: 45378

== ENCOUNTER 2023-06-06 12:10 | Day surgery (SDC) | payer MEDICARE, SELFPAY ==
[2023-06-04 11:08] VITALS: BMI 26.3
--- NOTE | 2023-06-05 09:35 | P.CONAN_ITS ---
Documented by User: Griselda Power NP 06/05/23 09:37 HPI - Anesthesia Eval Consult details Narrative: 67yo F for Sigmoidoscopy Flexible s/p same 02/2023 with MAC afib - no anticoag hx of pacer with removal d/t mrsa infection stable at 12/2022 Cardiology office visit Bullous pemphigoid stable on IVIG PMFSH Active Problems Active Problems: All Active Problems (Updated 06/04/23 @ 11:05 by Ewa Tom RN) Coffee ground emesis (Acute) Gastritis (Acute) Acute kidney injury (Acute) Acute on chronic anemia (Acute) Past Medical History Medical History Hx of flexible sigmoidoscopy Hx of hepatitis Hypogammaglobulinemia Cardiomyopathy History of diverticulitis Hx of gastroenteritis Bullous pemphigoid Bilateral cataracts Pacemaker complications MRSA (methicillin resistant Staphylococcus aureus) Positive colorectal cancer screening using Cologuard test 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 (nsaid) Hyperlipemia, mixed Afib Essential hypertension Hypothyroid Family History Family history of problems with anesthesia: No Surgical History Surgical History History of cardiac radiofrequency ablation (RFA) Hx of arthroscopy of left knee History of esophagogastroduodenoscopy (EGD) Hx of colonoscopy History of surgery on lower extremity History of Problems with Anesthesia: No Social History Social History Household Members: Other Household Members Other:: roomate Housing: Apartment Are you a primary career services representative to a significant other at home: No Do you presently have visiting nurse or other home services: No Alcohol intake: never Patient Tobacco Use Status: Never used Tobacco Are you DNR?: No Advance Directives: No Advance Directives Information Provided: Yes Advance Directives on File: No service: No Meds Allergies Allergy/AdvReac Type Severity Reaction Status Date / Time adhesive AdvReac rash, Verified 03/26/23 09:32 blisters, sensitive skin, especially with electrodes Home Medications Medication Instructions Recorded Confirmed Last Taken Type amiodarone 200 mg tablet 0.5 tab PO DAILY 07/28/22 06/04/23 07/28/22 History carvedilol 12.5 mg tablet 1 tab PO DAILY 07/28/22 06/04/23 07/28/22 History carvedilol 12.5 mg tablet 2 tab PO BEDTIME 07/28/22 06/04/23 07/27/22 History doxycycline monohydrate 100 mg 1 cap PO BID 07/28/22 03/26/23 07/28/22 History capsule levothyroxine 75 mcg tablet 1 tab PO DAILY 07/28/22 06/04/23 07/28/22 History simvastatin 20 mg tablet 1 tab PO BEDTIME 07/28/22 06/04/23 07/27/22 History valsartan 40 mg tablet 1 tab PO DAILY 07/28/22 06/04/23 07/28/22 History Exam Exam Date and Time: June 05, 2023 0935 Height,Weight and Vital Signs: Height 5 ft 9 in Weight 80.739 kg Pertinent Lab Results Pertinent Lab Results: Laboratory Tests 02/09/23 02/20/23 19:49 11:05 WBC 7.2 Hgb 12.0 Hct 36.7 L Plt Count 262 D Sodium 140 Potassium 3.5 D Chloride 107 Carbon Dioxide 25 BUN 37 H Creatinine 1.53 H Narrative Narrative: EKG 06/2022 Vent. Rate : 089 BPM ? ? Atrial Rate : 089 BPM ?? P-R Int : 178 ms? QRS Dur : 126 ms ? ? QT Int : 402 ms ? ? ? P-R-T Axes : 044 -09 118 degrees ?? QTc Int : 489 ms ? Normal sinus rhythm Left bundle branch block Abnormal ECG No previous ECGs available ECHO 2021 LV is mildly dilated Borderline concentric LVH EF 35% Thinning and severe hypokinesis of the basal septum. Mild to moderate hypokinesis of the other basal portions of the LV Moderate septal dyssynchrony Borderline RV enlargement RV systolic function is borderline reduced. LA is moderately dilated Mild pulm htn Mild valvular aortic stenosis No significant change from 07/2021 Assessment and Plan Assessment Anesthesia Assessment: Chart Reviewed Final Anesthetic Review Family History of Problems with Anesthesia: No History of Problems with Anesthesia: No Documented by User: Donna Addison MD 06/06/23 13:11 [facility] Past Medical History Medical History Hx of flexible sigmoidoscopy Hx of hepatitis Hypogammaglobulinemia Cardiomyopathy History of diverticulitis Hx of gastroenteritis Bullous pemphigoid Bilateral cataracts Pacemaker complications MRSA (methicillin resistant Staphylococcus aureus) Positive colorectal cancer screening using Cologuard test 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 (nsaid) Hyperlipemia, mixed Afib Essential hypertension Hypothyroid Surgical History Surgical History History of cardiac radiofrequency ablation (RFA) Hx of arthroscopy of left knee History of esophagogastroduodenoscopy (EGD) Hx of colonoscopy History of surgery on lower extremity Social History Social History Household Members: Other Household Members Other:: roomate Housing: Apartment Are you a primary career services representative to a significant other at home: No Do you presently have visiting nurse or other home services: No Alcohol intake: never Patient Tobacco Use Status: Never used Tobacco Are you DNR?: No Advance Directives: No Advance Directives Information Provided: Yes Advance Directives on File: No service: No Meds Allergies Allergy/AdvReac Type Severity Reaction Status Date / Time adhesive AdvReac rash, Verified 03/26/23 09:32 blisters, sensitive skin, especially with electrodes Home Medications Medication Instructions Recorded Confirmed Last Taken Type amiodarone 200 mg tablet 0.5 tab PO DAILY 07/28/22 06/04/23 07/28/22 History carvedilol 12.5 mg tablet 1 tab PO DAILY 07/28/22 06/04/23 07/28/22 History carvedilol 12.5 mg tablet 2 tab PO BEDTIME 07/28/22 06/04/23 07/27/22 History doxycycline monohydrate 100 mg 1 cap PO BID 07/28/22 03/26/23 07/28/22 History capsule levothyroxine 75 mcg tablet 1 tab PO DAILY 07/28/22 06/04/23 07/28/22 History simvastatin 20 mg tablet 1 tab PO BEDTIME 07/28/22 06/04/23 07/27/22 History valsartan 40 mg tablet 1 tab PO DAILY 07/28/22 06/04/23 07/28/22 History Exam Airway Mallampati Class: II TM Dist: >3cm Neck ROM: Full Loose/Missing/Broken Teeth: No Heart: RRR Lungs: CTA Assessment and Plan Assessment Anesthesia Assessment: Anesthesia Plan Discussed Final Anesthetic Review NPO: Yes ASA Class: III Final Preanesthetic Review: Meds/Allgs Chart Reviewed, Consent Obtained/Reviewed and Anes Risks/Benef Reviewed Patient Risk: Intermediate Procedure Risk: Low Anesthetic Plan Anesthetic Plan: MAC: Disposition: Standard PACU
--- NOTE | 2023-06-06 12:42 | MHC.SHP ---
Pre-Procedural Eval Section A Date of Service: 06/06/23 Section B Chief Complaint: Anemia, unspecified,Other fecal abnormalities Details of Present Illness: Pt had large tubulovillous adenoma of sigmoid colon removed piecemeal 08/2022. Here for follow up endoscopy. PMH: Afib Essential hypertension Hyperlipemia, mixed Hypothyroid Present Medications: see Short Stay Collaborative assessment Allergies: Allergies Allergy/AdvReac Type Severity Reaction Status Date / Time adhesive AdvReac rash, Verified 03/26/23 09:32 blisters, sensitive skin, especially with electrodes Review of Systems Review of Systems Comment: Ten point ROS negative Exam Exam Comment: Gen appear: No acute distress HEENT: no icterus Chest: No overt resp distress Abd: soft, nontender, nondistended Psych: Stable affect, answering questions appropriately Neuro: A/Ox3 noted to move all extremities spontaneously Ext: no peripheral edema Plan Diagnosis/Plan: Unchanged I have reviewed the history and physical and performed a pertinent physical examination on my patient. No changes have occurred unless specified. Time Spent With Patient Time: Total time managing care of this patient today ____ minutes.
[2023-06-06 12:51] VITALS: BP 152/82; PULSE 82; RESP 18; TEMP 36.4; O2SAT 97; BMI 25.8
--- NOTE | 2023-06-06 13:38 | P.OP_ITS ---
Operative Note Operative Note Date of Service: 06/06/23 Narrative: Procedure: Flexible sigmoidoscopy Indication: Personal hx of polyps, piecemeal polypectomy Endoscopist: Melinda Gambino MD Anesthesia Provider: Donna Addison MD Anesthesia type: MAC Instrument: Olympus [id number]-[id number] Consent: Indication, risks vs benefits, and alternatives were discussed with the patient who gave written informed consent to proceed. EKG, pulse, pulse oximetry and blood pressure were monitored throughout the procedure. Please see anesthesia flowsheet. Procedure: The patient was brought to the procedure room and placed in the left lateral decubitus position. IV medications were administered by the anesthesia provider in attendance. A digital rectal exam was performed which was abnormal for ext hemorrhoids. A distal attachment cap was affixed to the tip of the gastroscope which was then inserted through the anus and advanced through the colon to the transverse colon. Limitations: No limitations. Findings: Mucosa: Normal mucosa noted to the extent visualised. Previously placed Endomark noted at 32 cm. No residual polyp was noted on extensive eval between 32 to 42 cm. Protruding lesions: * Large internal hemorrhoids without stigmata of recent bleeding Excavated lesions: * Severe diverticulosis in sigmoid colon. Impression: 1. Normal colon mucosa 2. Previous endomark 3. Diverticulosis 4. Ext and internal hemorrhoids Recommendations: * Recommend repeat endoscopic evaluation in 1 year (can be flex sig) as per guidelines, and then the follow up evaluation in 3 years (preferably complete colo).
[2023-06-06 13:40] VITALS: BP 90/45; PULSE 78; RESP 18; TEMP 36.3; O2SAT 98
[2023-06-06 13:55] VITALS: BP 113/59; PULSE 74; RESP 20; TEMP 36.3; O2SAT 94
== END 2023-06-06 14:52 | disposition home or self-care (01) ==
PROVIDERS: PCP Family Medicine; Visit Provider Internal Medicine
PROC: 0DJD8ZZ Inspection of Lower Intestinal Tract, Via Natural or Artificial Opening Endoscopic (ICD-10-PCS; CPT 45330; principal; 2023-06-06 14:50)
DX: K57.30 Diverticulosis of large intestine without perforation or abscess without bleeding (principal); K64.8 Other hemorrhoids; R19.5 Other fecal abnormalities; D64.9 Anemia, unspecified; I48.91 Unspecified atrial fibrillation; I10 Essential (primary) hypertension; E78.2 Mixed hyperlipidemia; Z86.14 Personal history of Methicillin resistant Staphylococcus aureus infection
CPT/HCPCS: G0105

== ENCOUNTER → 2023-06-06 12:10 | Outpatient (BNV) | payer MEDICARE, SELFPAY | PROVIDERS: PCP Family Medicine; Visit Provider Internal Medicine | DX: Z12.11 Encounter for screening for malignant neoplasm of colon (principal); Z86.010 Personal history of colon polyps; K57.30 Diverticulosis of large intestine without perforation or abscess without bleeding; K64.8 Other hemorrhoids | CPT/HCPCS: 45330 ==

== ENCOUNTER → 2023-09-09 17:00 | Outpatient (RCR) | payer MEDICARE, BC, SELFPAY | END | disposition home or self-care (01) | LOC: HO.WCC 10-17 07:58 | PROVIDERS: Visit Provider Physician Assistant | DX: Z09 Encounter for follow-up examination after completed treatment for conditions other than malignant neoplasm; L12.0 Bullous pemphigoid; L30.9 Dermatitis, unspecified; I10 Essential (primary) hypertension; G62.9 Polyneuropathy, unspecified; Z87.2 Personal history of diseases of the skin and subcutaneous tissue | CPT/HCPCS: 11042; 11045; 97597; 97598; 97602; 99212; 99213; 99214 ==

== ENCOUNTER 2024-09-02 11:54 | Emergency (ER) | payer MEDICARE, SELFPAY ==
--- NOTE | ~2024-09-02 | XR_ITS ---
EXAMINATION: XR KNEE, LEFT CLINICAL INFORMATION: pain COMPARISON: None available. TECHNIQUE: Four views of the left knee. 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 There is marked joint space narrowing and chronic remodeling of the medial and lateral compartments as well as marked degenerative change of the patellofemoral compartment and a small joint effusion. No acute fracture is evident. Surrounding soft tissue swelling. XR/XR knee LT 4V IMPRESSION: Postsurgical and severe degenerative changes of the left knee with a small joint effusion and surrounding soft tissue swelling. No acute fracture is evident. Electronically signed by: Cosme Kolb MD 09/02/2024 03:05 PM [facility]
[2024-09-02 12:35] VITALS: BP 142/76; PULSE 78; RESP 20; TEMP 36.7; O2SAT 98; BMI 25.9
--- NOTE | 2024-09-02 12:36 | ED.LOWEXIN ---
HPI - Extremity Injury (Lower) General Chief Complaint: Extremity Injury, Lower Stated Complaint: knee pain Time Seen by Provider: 09/02/24 15:04 Source: patient and RN notes reviewed Mode of arrival: ambulatory Limitations: no limitations History of Present Illness ED Provider: Aixa Magana PA-C HPI Narrative: This is a 68-year-old female, with a history of bullous pemphigoid, who presents emergency department with complaints of left knee pain. She has extensive orthopedic surgeries, and reconstruction of her left lower leg, and is currently being followed by the [facility] in [place]. She states that today while she was sitting she felt as though her left leg locked up, and felt a popping sensation in her knee in his concern for ligamentous injury. Patient reports that she has tingling down her left leg however states that this is chronic for her. She has been able to bear weight on her leg. No calf pain. No chest pain or shortness of breath. No other complaints or concerns at this time. MD complaint: knee injury Severity: moderate Relieving factors: nothing Exacerbating factors: nothing Context: fall Associated symptoms: snap/pop sensation and tingling Related Data Home Medications ?Medication ?Instructions ?Recorded ?Confirmed amiodarone 200 mg tablet 0.5 tab PO DAILY 07/28/22 06/04/23 carvedilol 12.5 mg tablet 1 tab PO DAILY 07/28/22 06/04/23 carvedilol 12.5 mg tablet 2 tab PO BEDTIME 07/28/22 06/04/23 doxycycline monohydrate 100 mg 1 cap PO BID 07/28/22 03/26/23 capsule levothyroxine 75 mcg tablet 1 tab PO DAILY 07/28/22 06/04/23 simvastatin 20 mg tablet 1 tab PO BEDTIME 07/28/22 06/04/23 valsartan 40 mg tablet 1 tab PO DAILY 07/28/22 06/04/23 Previous Rx's ?Medication ?Instructions ?Recorded ondansetron 4 mg disintegrating 4 mg PO Q6-8H PRN nausea and 02/09/23 tablet vomiting #7 tabs polyethylene glycol 3350 17 17 g PO DAILY 3 days #51 grams 05/31/23 gram/dose oral powder (Miralax) Allergies Allergy/AdvReac Type Severity Reaction Status Date / Time adhesive AdvReac rash, Verified 09/02/24 12:39 blisters, sensitive skin, especially with electrodes Review of Systems Review of Systems: Yes all other systems are reviewed and are negative Constitutional: Constitutional: Reports as per [facility] Past Medical History Medical History Hx of flexible sigmoidoscopy Hx of hepatitis Hypogammaglobulinemia Cardiomyopathy History of diverticulitis Hx of gastroenteritis Bullous pemphigoid Bilateral cataracts Pacemaker complications MRSA (methicillin resistant Staphylococcus aureus) 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) use of non-steroidal anti-inflammatories (nsaid) Hyperlipemia, mixed Afib Essential hypertension Hypothyroid Surgical History History of cardiac radiofrequency ablation (RFA) Hx of arthroscopy of left knee History of esophagogastroduodenoscopy (EGD) Hx of colonoscopy History of surgery on lower extremity Social History Social History Household Members: Other Household Members Other:: roomate Housing: Apartment Are you a primary nanny caregiver to a significant other at home: No Do you presently have visiting nurse or other home services: No Alcohol intake: never Comment: aware of trip hazard Patient Tobacco Use Status: Never used Tobacco Advance Directives: No Advance Directives Information Provided: Yes Do you have a plan to hurt others: No Plan service: No Physical Exam Vital Signs: Vital Signs: Last Vital Signs Temp 0 F L 09/02/24 16:52 Pulse 67 09/02/24 16:52 Resp 16 09/02/24 16:52 BP 160/70 H 09/02/24 16:52 Pulse Ox 98 09/02/24 16:52 O2 Del Method Room Air 09/02/24 16:52 BMI result Body Mass Index 25.9 Const: General: cooperative, comfortable and no acute distress Orientation/consciousness: patient oriented x3 Limitations: no limitations HEENT: Head: Yes normal to inspection, Yes normocephalic and Yes atraumatic Ears: hearing grossly normal bilaterally General nose exam: Normal external nose present Face and sinus: Yes normal facial exam Mouth: Normal oral and palatal mucosa present, oropharynx normal and moist mucous membranes Throat: Yes posterior oropharynx normal Eyes: General: appearance normal, both eyes and all related structures Eyelids: Yes eyelids normal Conjunctivae: conjunctivae normal Sclerae: sclerae normal Pupils: Equal, round and reactive pupils present EOM: EOMs intact bilaterally Neck: Neck: Yes normal visual inspection, Yes full ROM and Yes no lymphadenopathy Lymphatic: no lymphadenopathy noted Chest: Chest palpation & inspection: normal inspection of the chest Resp: Effort & Inspection: normal respiratory effort and able to speak in complete sentences Auscultation: clear to auscultation bilaterally, no crackles, no rales, no rhonchi and no wheezes Cardio: Rate: regular rate Rhythm: regular rhythm Heart sounds: S1 normal heart sound present and S2 normal heart sound present GI: Inspection: Yes normal to inspection Skin: General skin exam: no rashes or lesions noted Trauma: no lacerations or abrasions Wounds: no wounds Neuro: General: patient oriented x3 and moves all extremities Cranial nerves: Yes Equal, round and reactive pupils present Extrem: Other: Left knee with no obvious bony deformity or swelling. Left leg with chronic venous stasis changes, and overlying skin crusting, and dry skin noted throughout the leg which patient reports is chronic. No overlying erythema or profound warmth. No weeping. No open wounds. Strong DP pulse. She reports numbness and tingling into her leg which is chronic for her. No calf tenderness. No laxity with varus and valgus strain. Negative anterior-posterior drawer test. Ambulatory. General: Yes normal to inspection Right upper extremity: normal to inspection Left upper extremity: normal to inspection Right lower extremity: normal to inspection Left lower extremity: normal to inspection Course Course Course Narrative: This is a Rapid Medical Examination (RME) performed by Orquidea Guerrero PA-C in triage. Full HPI, ROS, assessment and treatment plan per primary provider in the Main ED. 68 yo female with history of bullous pemphigoid, hx left knee infection s/p washout in the past presenting to the ER for evaluation of left knee pain. hx bone on bone in the left knee. reports it locked up while she was sitting this morning and it was flexed, unable to straighten it at the time but can now. reports chronic numbness. Plan: XR knee Medical Decision Making Medical Decision Making MDM Narrative: This is a 68-year-old female, with a history of bullous pemphigoid, who presents emergency department with complaints of left knee pain. She has a history of chronic knee pain in his currently being followed by performance improvement specialist in [place]. She states that today while she was sitting she felt as though her left knee locked up in felt a popping sensation within her knee. Upon my arrival to the room, patient is upset as she has been waiting for several hours to be seen, and is upset that she is not seeing a performance improvement specialist for her knee pain today. She states that this was not appropriately communicated to her in triage, and feels as though she has wasting her time here in the emergency room as she is not seeing an performance improvement specialist. I explained to patient that we do have performance improvement specialist teacher adult education for emergent/surgical cases, but otherwise do not have performance improvement specialist routinely available in the emergency room. She states that if she would have known that, she would have not waited, or checked in to be evaluated here in the emergency room. Patient reports that she developed knee pain today while sitting. Left leg with chronic venous stasis changes, and dry/scaling skin, with no calf tenderness, Strong DP pulse. Leg is well perfused. X-ray was performed today which revealed small joint effusion and severe degenerative changes. I discussed this finding with patient. She inquired about an MRI, and I informed her that this unfortunately can not be performed in the emergency room and this is something that she needs to follow-up with. I advised patient as she has had multiple surgical complications requiring multiple surgical interventions out in [facility] to call them to follow-up as she may need an MRI for further diagnostic imaging and treatment. I gave her referral to the performance improvement specialist here should she decide to follow-up with them. Patient understands, patient stable for discharge. Differential Diagnosis Differential Diagnoses: The differential diagnosis associated with the presentation includes Knee strain, sprain, ligamentous derangement Radiology Impression Discussion of test interpretation with radiology: I have reviewed the radiologist's reading. 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 No acute fracture is evident. Electronically signed by: Cosme Kolb MD 09/02/2024 03:05 PM [facility] Dictated By: Cosme Kolb MD Discharge Plan Discharge Clinical Impression: Left knee sprain Qualifiers: Encounter type: initial encounter Patient Disposition: Home, Self-Care Instructions: Knee Sprain (ED) Additional Instructions: You were seen in the emergency department due to left knee pain. Your x-ray reveals severe degenerative changes as well as some swelling within the knee. X-rays only show bones, they do not show ligaments, or any ligament injury. Please rest, ice, elevate your leg. Follow-up with your orthopedist. My advice is to follow-up with your orthopedist who you have seen in the past. We also have orthopedist on staff your, you will see the referral below. You may call them at your earliest convenience. If any new or worsening symptoms occur including but not limited to worsening swelling, fevers, chills, chest pain, shortness of breath, please seek emergent care. Prescriptions: No Action polyethylene glycol 3350 [Miralax] 17 gram/dose powder 17 g PO DAILY 3 Days Qty: 51 0RF Rx Instructions: Take as directed DILUTE powder into 8oz of liquid, take 17gm daily 3 days prior to procedure carvedilol 12.5 mg tablet 1 tab PO DAILY carvedilol 12.5 mg tablet 2 tab PO BEDTIME amiodarone 200 mg tablet 0.5 tab PO DAILY levothyroxine 75 mcg tablet 1 tab PO DAILY doxycycline monohydrate 100 mg capsule 1 cap PO BID simvastatin 20 mg tablet 1 tab PO BEDTIME valsartan 40 mg tablet 1 tab PO DAILY ondansetron 4 mg tablet,disintegrating 4 mg PO Q6-8H PRN (Reason: nausea and vomiting) Qty: 7 0RF Referrals: [facility] [Provider Group] Interventions: ED Discharge Assessment Last Done: 09/02/24 16:52 Discharge Date/Time: 09/02/24 16:53 Print Language: Lao
[2024-09-02 14:59] VITALS: BP 160/70; PULSE 67; RESP 16; O2SAT 98
[2024-09-02 16:52] VITALS: BP 160/70; PULSE 67; RESP 16; TEMP -17.7; TEMP 0; O2SAT 98
--- NOTE | 2024-09-02 22:57 | PC.NURSE ---
PT voiced complaints of waiting hours to be seen. PT asked when was Ortho going to see her , this Nurse explained to patient that Ortho doesn't make regular rounds in the ED, pt then stated Why am i here then, they should of told me i was not seeing ortho. PT explained that the ED provider needed to see the patient first and establish plan of care, pt proceeded to ask how long was that going to take, this nurse told the patient that i was not to sure what the exact time frame would be but that the provider would see her shortly pt said she has two hours to come see me or i'm walking out of here, they can just call me with my x-ray results,. pt made aware with calling for results LWCT wouldn't occur. pt asked what provider would see her this nurse told her the PA, Physician banking assistant pt said What's a PA. this nurse explained to patient that it was a physician banking assistant and then pt said I'm educated i know what a PA is but not everyone knows, please refrain from using acronyms even though i'm well educated and know this already. PT then proceeded to complain about communication at the hospital this nurse told the patient she was waiting to be seen by provider, pt reported no pain at this time.When Pt explained the waiting time and different levels of care in the ED pt said I know how the ER works, you guys are understaffed and don't have enough people it's incompetent. PT made aware of the shortages nationwide. PT also made aware we were the only hospital in the city a large community. PT educated on wait times.
== END 2024-09-02 16:53 | disposition home or self-care (01) ==
PROVIDERS: Emergency Provider Emergency Medicine; PCP Family Medicine
DX: S83.92XA Sprain of unspecified site of left knee, initial encounter (principal); X58.XXXA Exposure to other specified factors, initial encounter; I10 Essential (primary) hypertension; E78.5 Hyperlipidemia, unspecified; I48.91 Unspecified atrial fibrillation; Z79.02 Long term (current) use of antithrombotics/antiplatelets; Z79.899 Other long term (current) drug therapy; Z79.1 Long term (current) use of non-steroidal anti-inflammatories (NSAID); Z86.14 Personal history of Methicillin resistant Staphylococcus aureus infection; Y93.9 Activity, unspecified; Y92.9 Unspecified place or not applicable; Y99.9 Unspecified external cause status
CPT/HCPCS: 73564; 99283